=== PATIENT | female | born 1970 | race Caucasian/White ===

== ENCOUNTER 2016-11-11 08:51 | Day surgery (SDC) | payer OTHER ==
--- NOTE | 2016-10-29 08:46 | HP ---
DATE OF ADMISSION: CHIEF COMPLAINT: Left breast mass. HISTORY OF PRESENT ILLNESS: Patient is a 46-year-old female who has been followed for a small mass in the left breast. Previous ultrasound suggested this was a lymph node. The patient has increased pain in that location and thinks it may be slightly larger. Denies nipple discharge. Prior mammogram was normal. She has a family history of breast cancer in an aunt on both the maternal and paternal side. PAST MEDICAL HISTORY: Denies. PAST SURGICAL HISTORY: , appy, IVC filter, head. MEDICATIONS: None. ALLERGIES: None. PHYSICAL EXAM: HEENT is normocephalic. Sclerae anicteric. CHEST: No deformities. Right breast without mass or adenopathy. Left breast with a small 1.5 x 1 cm mass at the 9 o'clock parasternal location. No adenopathy. Mild tenderness. Abdomen is soft, nontender, nondistended. IMPRESSION: A 46-year-old female with left breast mass. PLAN: Will proceed with operative excision on 11/11. The risks of bleeding, infection, postoperative pain, scarring, numbness and recurrence were discussed. She understands and wishes to proceed.
[~2016-11-11 08:51] MED LIST: DEXAMETHASONE SOD PHOSPHATE 10 MG/ML 1 ML VIAL IV ONE; HEPARIN SODIUM,PORCINE 5,000 UNIT/ML 1 ML VIAL SQ ONE; HYDROmorphone 1 MG/ML 1 ML SYRINGE IVP PRN; LACTATED RINGERS 1,000 ML IV SCH; ONDANSETRON 4 MG/2 ML VIAL IVP ONE; ceFAZolin 2 GM in SODIUM CHLORIDE 0.9% 100 ML IVPB ONE
[2016-11-11 09:17] VITALS: RESP 16
[2016-11-11] MEDS ORDERED: LIDOCAINE 1% 20 ML VIAL (10MG/ML) FOR IV START INTRADERMA ONE (09:23)
[2016-11-11] MEDS ORDERED: MIDAZOLAM 2 MG/2 ML VIAL ONE (09:59)
[2016-11-11] MEDS ORDERED: fentaNYL (PF) 50 MCG/ML 2 ML AMP ONE (09:59)
[2016-11-11] MEDS ORDERED: PROPOFOL 10 MG/ML 20 ML VIAL IV ONE (09:59)
[2016-11-11] MEDS ORDERED: LIDOCAINE 1% INJ 10MG/ML (20 ML MDV) ONE (09:59)
[2016-11-11] MEDS ORDERED: BUPIVACAIN-EPI 0.25%-1:200,000 30 ML VIAL SQ ONE (09:59)
[2016-11-11] MEDS ORDERED: ePHEDrine 50 MG/ML 1 ML AMP ONE (09:59)
[2016-11-11 10:41] VITALS: TEMP 96.9
[2016-11-11] MEDS ORDERED: NALOXONE 0.4 MG/ML 1 ML VIAL IV PRN (10:58)
[2016-11-11] MEDS ORDERED: HYDROcodone/APAP 5-325MG 1 EACH TAB PO PRN (10:58)
--- NOTE | 2016-11-11 11:02 | P.PCN ---
Date of Procedure: 11/11/16 Procedure(s) Performed: PREOPERATIVE DIAGNOSIS: Left breast mass POSTOPERATIVE DIAGNOSIS: Same PROCEDURE: Left breast biopsy SURGEON: Attila EBL: Minimal ANESTHESIA: General COMPLICATIONS: None OPERATIVE PROCEDURE: Patient was placed on the operating room table in the supine position. The patient's breast was prepped and draped in usual sterile fashion. A small horizontal incision was made overlying the palpable mass at the 9 o'clock position. The mass was fully excised with the use of electrocautery. The subcutaneous tissues were inspected. No bleeding was seen. The subcutaneous tissues were closed using 3-0 Vicryl sutures. The skin was closed using a running 4-0 Monocryl stitch. Steri-Strips and sterile dressings were applied. DISPOSITION: Stable to recovery room
[2016-11-11] MEDS ORDERED: KETOROLAC 30 MG/ML 1 ML VIAL IVP ONE (11:08)
[2016-11-11 12:05] VITALS: BP 85/55
[2016-11-11 12:28] VITALS: PULSE 62
== END 2016-11-11 12:45 | disposition home or self-care (01) ==
LOC: OR 08:51
PROVIDERS: ATTEND Surgery
DX: D17.1 Benign lipomatous neoplasm of skin and subcutaneous tissue of trunk (principal); Z80.3 Family history of malignant neoplasm of breast; Z86.718 Personal history of other venous thrombosis and embolism
CPT/HCPCS: 81025; 88304; 19120; J2250; J1644; J1100; J0690; J2405; J2001; J3010; J1885; J2704

== ENCOUNTER 2019-08-16 13:08 | Emergency (ER) | payer OTHER ==
[2019-08-16 13:26] VITALS: TEMP 98.5
--- NOTE | 2019-08-16 14:11 | US ---
EXAMINATION TYPE: US venous doppler duplex LE RT DATE OF EXAM: 08/16/2019 2:04 PM COMPARISON: NONE CLINICAL HISTORY: pain, redness, hx of dvt. SIDE PERFORMED: Right TECHNIQUE: The lower extremity deep venous system is examined utilizing real time linear array sonog munira with graded compression, doppler sonography and color-flow sonography. VESSELS IMAGED: External Iliac Vein (EIV) Common Femoral Vein Deep Femoral Vein Greater Saphenous Vein * Femoral Vein Popliteal Vein Small Saphenous Vein * Proximal Calf Veins (* superficial vessels) Right Leg: Negative for DVT Positive for SVT. At the area of redness, right inner thigh, the GSV is thrombosed and noncompressibl e. IMPRESSION: 1. Findings are compatible with superficial venous thrombosis of the greater saphenous vein. 2. No diagnostic evidence of deep venous thrombosis.
--- NOTE | 2019-08-16 14:31 | ED ---
Extremity Problem HPI - General Chief complaint: Extremity Problem,Nontraumatic Stated complaint: Poss DVT Time Seen by Provider: 08/16/19 13:30 Source: patient, family Mode of arrival: ambulatory Limitations: no limitations - History of Present Illness Initial comments: Patient is a 49-year-old female presenting to emergency Department with complaints of redness and pain in her upper right leg 2 days. Patient states she has a history of DVTs and is concerned this may be another one. Patient denies any recent travel. Patient was on steroids and other [id number] medications for recent cold. Patient denies fever, chills, shortness breath, cough. Patient has no other complaints at this time. Upon arrival to ER, vital signs are stable. - Related Data Previous Rx's Medication Instructions Recorded Hydrocodone/Acetaminophen [[place] 1 - 2 each PO Q4HR PRN #30 tab 11/11/16 5-325] Allergies Allergy/AdvReac Type Severity Reaction Status Date / Time No Known Allergies Allergy Verified 08/16/19 13:23 Review of Systems ROS Statement: Those systems with pertinent positive or pertinent negative responses have been documented in the HPI. ROS Other: All systems not noted in ROS Statement are negative. Past Medical History Past Medical History: Cancer, Deep Vein Thrombosis (DVT) Additional Past Medical History / Comment(s): LT BREAST MASS. HX ABNORMAL CHIARI TO BACK OF HEAD. CERVICAL CANCER X 2 History of Any Multi-Drug Resistant Organisms: None Reported Past Surgical History: Appendectomy, Section, Uterine Ablation Additional Past Surgical History / Comment(s): PREM IN MIDDLE OF CHEST JUST UNDER BREAST AREA. ENLARGED OPENED FOR CHIARI MALFUNCTIONS. COLD KNIFE CONIZATION X 2 Past Anesthesia/Blood Transfusion Reactions: Postoperative Nausea & Vomiting (PONV) Past Psychological History: No Psychological Hx Reported Smoking Status: Current every day smoker - Past Family History Sister(s) Family Medical History: Cancer Father Family Medical History: Cancer General Exam - General Exam Comments Initial Comments: GENERAL: Well-appearing, well-nourished and in no acute distress. HEAD: Atraumatic, normocephalic. EYES: Pupils equal round and reactive to light, extraocular movements intact, sclera anicteric, conjunctiva are normal. ENT: Moist mucous membranes. NECK: Normal range of motion, supple without lymphadenopathy or JVD. LUNGS: Breath sounds clear to auscultation bilaterally and equal. No wheezes rales or rhonchi. HEART: Regular rate and rhythm without murmurs, rubs or gallops. ABDOMEN: Soft, nontender, normoactive bowel sounds. EXTREMITIES: There is erythema and mild swelling of the right inner thigh. On palpation, there is a superficial cordlike structure, consistent with a possible superficial thrombi. Patient is neurovascular intact. Patient is full range of motion of the right knee and hip. NEUROLOGICAL: Cranial nerves II through XII grossly intact. Normal speech, normal gait. PSYCH: Normal mood, normal affect. SKIN: Warm, Dry, normal turgor, no rashes or lesions noted. Limitations: no limitations Course Vital Signs 08/16/19 08/16/19 13:23 14:55 Temperature 98.5 F Pulse Rate 79 84 Respiratory 16 20 Rate Blood Pressure 103/68 136/79 O2 Sat by Pulse 97 98 Oximetry Medical Decision Making - Medical Decision Making Patient is a 49-year-old female presenting with right inner leg redness, swelling, pain 2 days. Patient does have history of DVT. Right lower extremity Doppler reveals a superficial venous thrombus in the greater saphenous vein. No diagnostic evidence of a DVT. Patient is stable for discharge at this time. Patient will use warm compresses and anti-inflammatories for pain control. Patient will follow up with her PCP next week. Return parameters were discussed with the patient and she verbalized understanding. Case discussed with Dr. Tran. Disposition Clinical Impression: Superficial thrombosis of right lower extremity Disposition: HOME SELF-CARE Condition: Stable Instructions (If sedation given, give patient instructions): Superficial Thrombophlebitis (ED) Additional Instructions: Please return to the Emergency Department if symptoms worsen or any other concerns. Continue with Motrin and heat to the area. Follow-up with PCP next week for recheck. Is patient prescribed a controlled substance at d/c from ED?: No Referrals: Vikram Diggs MD [Primary Care Provider] - 1-2 days
[2019-08-16 14:56] VITALS: BP 136/79; PULSE 84; RESP 20
== END 2019-08-16 14:56 | disposition home or self-care (01) ==
LOC: EC 13:08
DX: I82.811 Embolism and thrombosis of superficial veins of right lower extremity (principal); F17.200 Nicotine dependence, unspecified, uncomplicated; Z86.718 Personal history of other venous thrombosis and embolism; Z85.41 Personal history of malignant neoplasm of cervix uteri
CPT/HCPCS: 99283

== ENCOUNTER → 2020-04-17 | Outpatient (CLI) | payer OTHER ==
--- NOTE | 2020-04-17 11:40 | MM ---
Reason for exam: clinical finding. Last mammogram was performed 5 years and 2 months ago. History: Patient is postmenopausal and has history of other cancer at age 23. Family history of breast cancer in maternal aunt at age 50, breast cancer in paternal aunt at age 50, and breast cancer in paternal uncle at age 70. Benign excisional biopsy of the left breast, 2018. Physical Findings: Nurse Summary: 1 x 1.5cm nodule in the left breast at 9 o'clock (nurse ts). MG Diagnostic Mammo w CAD MARE Bilateral CC and MLO view(s) were taken. Prior study comparison: February 25, 2015, mammogram. The breast tissue is heterogeneously dense. This may lower the sensitivity of mammography. No significant new findings when compared with previous films. These results were verbally communicated with the patient and result sheet given to the patient on 04/17/20. ASSESSMENT: Incomplete: need additional imaging evaluation, BI-RAD 0 RECOMMENDATION: Ultrasound of the left breast.
--- NOTE | 2020-04-17 11:42 | USB ---
Reason for exam: additional evaluation requested from abnormal screening. History: Patient is postmenopausal and has history of other cancer at age 23. Family history of breast cancer in maternal aunt at age 50, breast cancer in paternal aunt at age 50, and breast cancer in paternal uncle at age 70. Benign excisional biopsy of the left breast, 2018. US Breast LT Left complete breast ultrasound includes all four quadrants, the retroareolar region and axilla. Finding demonstrates a 2.0 x 0.4 x 1.0cm oval, hyperechoic lesion at 8 o'clock, questionable lipoma. These results were verbally communicated with the patient and result sheet given to the patient on 04/17/20. ASSESSMENT: Probably benign, BI-RAD 3 RECOMMENDATION: Ultrasound of the left breast in 3 months. (3-6 months)
== END | disposition home or self-care (01) ==
LOC: RADMAMWWP 09:41
PROVIDERS: ATTEND Internal Medicine
DX: R92.8 Other abnormal and inconclusive findings on diagnostic imaging of breast (principal); N63.20 Unspecified lump in the left breast, unspecified quadrant
CPT/HCPCS: 77066

== ENCOUNTER → 2020-08-05 | Outpatient (CLI) | payer OTHER ==
--- NOTE | 2020-08-10 14:43 | MM ---
Reason for exam: follow-up at short interval from prior study. Last mammogram was performed 4 months ago. History: Patient is postmenopausal and has history of other cancer at age 23. Family history of breast cancer in maternal aunt at age 50, breast cancer in paternal aunt at age 50, and breast cancer in paternal uncle at age 70. Benign excisional biopsy of the left breast, 2018. Physical Findings: Nurse Summary: 1.5cm nodule in the left breast at 8 o'clock (nurse taylor). MG Diagnostic Mammo LT w CAD CC and MLO view(s) were taken of the left breast. Prior study comparison: April 17, 2020, bilateral MG diagnostic mammo w CAD MARE. February 25, 2015, mammogram. The breast tissue is heterogeneously dense. This may lower the sensitivity of mammography. These results were verbally communicated with the patient and result sheet given to the patient on 08/05/20. ASSESSMENT: Incomplete: need additional imaging evaluation, BI-RAD 0 RECOMMENDATION: Ultrasound of the left breast.
--- NOTE | 2020-08-10 14:45 | USB ---
Reason for exam: additional evaluation requested from abnormal screening. History: Patient is postmenopausal and has history of other cancer at age 23. Family history of breast cancer in maternal aunt at age 50, breast cancer in paternal aunt at age 50, and breast cancer in paternal uncle at age 70. Benign excisional biopsy of the left breast, 2018. US Breast Limited LT Left limited breast ultrasound including focal area of concern, retroareolar and axilla demonstrates a 1.4 x 0.5 x 1.1cm hyperechoic questionable lipoma at 8 o'clock. These results were verbally communicated with the patient and result sheet given to the patient on 08/05/20. ASSESSMENT: Probably benign, BI-RAD 3 RECOMMENDATION: Follow-up diagnostic mammogram of both breasts in 9 months. Ultrasound of the left breast in 9 months. Back on schedule for April 2021.
== END | disposition home or self-care (01) ==
LOC: RADMAMWWP 14:15
PROVIDERS: ATTEND Internal Medicine
DX: R92.8 Other abnormal and inconclusive findings on diagnostic imaging of breast (principal)
CPT/HCPCS: 77065

== ENCOUNTER → 2021-11-03 | Outpatient (CLI) | payer OTHER ==
[2021-11-03 14:35] LABS: Basophils # (A) 0.01 X 10*3/uL (0.00-0.10); Basophils % (A) 0.2 %; Eosinophils # (A) 0.19 X 10*3/uL (0.04-0.35); HCT 38.1 % (37.2-46.3); HGB 12.5 g/dL (12.0-15.0); Lymphocytes # (A) 2.26 X 10*3/uL (0.90-5.00); Lymphocytes % (A) 47.1 %; MCH 30.6 pg (27.0-32.0); MCHC 32.8 g/dL (32.0-37.0); MCV 93.4 fL (80.0-97.0); Mean Platelet Volume 9.3 fL (9.5-12.2); Monocytes # (A) 0.46 X 10*3/uL (0.20-1.00); Monocytes % (A) 9.6 %; Neutrophils # (A) 1.87 X 10*3/uL (1.80-7.70); Neutrophils % (A) 38.9 %; Platelet Count 254 X 10*3/uL (140-440); RBC 4.08 X 10*6/uL (4.10-5.20); RDW 12.1 % (11.5-14.5)
[2021-11-03 15:08] LABS: ALT 11 U/L (8-44); AST 18 U/L (13-35); African American GFR (CKD) 85.2 (60.0-200.0); Albumin 4.1 g/dL (3.8-4.9); Albumin/Globulin Ratio 1.71 (1.60-3.17); Alkaline Phosphatase 73 U/L (41-126); BUN/Creat Ratio 12.67 Ratio (12.00-20.00); Blood Urea Nitrogen 11.4 mg/dL (9.0-27.0); Calcium 9.5 mg/dL (8.7-10.3); Carbon Dioxide 24.9 mmol/L (20.0-27.5); Chloride 102 mmol/L (96-109); Globulin 2.4 g/dL (1.6-3.3); Glucose 85 mg/dL (70-110); Non-African American GFR(CKD) 73.5 (60.0-200.0); Potassium 4.4 mmol/L (3.5-5.5); Sodium 140 mmol/L (135-145); Total Protein 6.5 g/dL (6.2-8.2)
[2021-11-03 16:30] LABS: Erythrocyte Sedimentation Rate 8 mm/Hr (0-30)
[2021-11-04 03:21] LABS: Chol/HDL Ratio 3.28 Ratio; LDL Cholesterol,Calculated 123.2 mg/dL (0.0-131.0); VLDL Calculation 15.08 mg/dL (5.00-40.00)
== END | disposition home or self-care (01) ==
LOC: LABWHC1 08:15
PROVIDERS: ATTEND Family Medicine
DX: E78.5 Hyperlipidemia, unspecified (principal); R63.4 Abnormal weight loss; E55.9 Vitamin D deficiency, unspecified
CPT/HCPCS: 36415; 80053; 80061; 82306; 84439; 84443; 85025; 85652

== ENCOUNTER → 2021-11-15 | Outpatient (CLI) | payer OTHER ==
--- NOTE | 2021-11-15 09:40 | US ---
EXAMINATION TYPE: US abdomen complete DATE OF EXAM: 11/15/2021 COMPARISON: NONE CLINICAL HISTORY: 51-year-old female R10.13 EPIGASTRIC PAIN. Epigastric pain; inability to gain weigh t for many months per patient TECHNIQUE: Multiple sonographic images of the abdomen are obtained. FINDINGS: EXAM MEASUREMENTS: Liver Length: 14.2 cm Gallbladder: Surgically absent CBD: 0.35 cm Spleen: 7.8 x 3.1 cm Right Kidney: 9.6 x 3.7 x 5.0 cm Left Kidney: 9.2 x 4.4 x 4.1 cm Pancreas: Suboptimal visualization of the pancreatic tail due to shadowing from bowel gas. Visualize d portions show no gross abnormal body. Liver: Vague echogenic focus 1.4 x 1.2 x 1.3 cm superior right liver lobe, probably a hemangioma. T his can be reassessed at a 6 month follow-up. Gallbladder: Surgically absent CBD: wnl Spleen: Appears wnl; difficult visualization due to rib shadowing Right Kidney: No hydronephrosis or masses seen Left Kidney: No hydronephrosis or masses seen Upper IVC: wnl Abd Aorta: wnl IMPRESSION: 1. An echogenic 1.4 cm lesion superior right liver lobe probably a benign hemangioma. Six-month follo w-up ultrasound to reassess. 2. Status post cholecystectomy. No biliary ductal dilatation.
--- NOTE | 2021-11-16 07:56 | MM ---
Reason for exam: additional evaluation requested from prior study. Last mammogram was performed 1 year and 3 months ago. History: Patient is postmenopausal and has history of other cancer at age 23. Family history of breast cancer in maternal aunt at age 50, breast cancer in paternal aunt at age 50, and breast cancer in paternal uncle at age 70. Benign excisional biopsy of the left breast, 2018. Took hormonal contraceptives for 6 years beginning at age 14. Physical Findings: Nurse did not find any significant physical abnormalities on exam. MG 3D Diag Mammo W/Cad MARE Bilateral CC and MLO view(s) were taken. Prior study comparison: August 05, 2020, left breast MG diagnostic mammo LT w CAD. April 17, 2020, bilateral MG diagnostic mammo w CAD MARE. The breast tissue is heterogeneously dense. This may lower the sensitivity of mammography. Patient palpable and pain marker medial left breast. No significant new findings when compared with previous films. These results were verbally communicated with the patient and result sheet given to the patient on 11/15/21. ASSESSMENT: Incomplete: need additional imaging evaluation, BI-RAD 0 RECOMMENDATION: Ultrasound of the left breast.
--- NOTE | 2021-11-16 08:00 | USB ---
Reason for exam: additional evaluation requested from abnormal screening. History: Patient is postmenopausal and has history of other cancer at age 23. Family history of breast cancer in maternal aunt at age 50, breast cancer in paternal aunt at age 50, and breast cancer in paternal uncle at age 70. Benign excisional biopsy of the left breast, 2018. Took hormonal contraceptives for 6 years beginning at age 14. US Breast Limited LT Technologist: Claudia Pereyra Left limited breast ultrasound including focal area of concern, retroareolar and axilla demonstrates a 1.9 x 1.1 x 0.5cm oval lesion at 8 o'clock BB versus 2.0 x 1.0 x 0.4cm on 04/17/20, compatible with a benign lipoma. These results were verbally communicated with the patient and result sheet given to the patient on 11/15/21. ASSESSMENT: Benign, BI-RAD 2 RECOMMENDATION: Routine screening mammogram of both breasts in 1 year. Manage on a clinical basis with regard to likely benign lipoma. If symptomatic, surgical consultation can be considered.
== END | disposition home or self-care (01) ==
LOC: RADUSWWP 08:15
PROVIDERS: ATTEND Family Medicine
DX: K76.89 Other specified diseases of liver (principal); R92.8 Other abnormal and inconclusive findings on diagnostic imaging of breast; Z90.49 Acquired absence of other specified parts of digestive tract; Z78.0 Asymptomatic menopausal state; Z80.3 Family history of malignant neoplasm of breast
CPT/HCPCS: 77066; 76700; 76642; G0279; 77062

== ENCOUNTER 2022-05-15 19:22 | Emergency (ER) | payer OTHER ==
[2022-05-15 19:31] VITALS: BP 103/73; PULSE 75; RESP 18; TEMP 98.5
[2022-05-15] MEDS ORDERED: ACETAMINOPHEN TAB 325 MG TAB PO STA (19:43)
[2022-05-15] MEDS ORDERED: ONDANSETRON ODT 4 MG TAB PO STA (19:43)
--- NOTE | 2022-05-15 20:53 | CT ---
EXAMINATION TYPE: CT brain cole wo con DATE OF EXAM: 05/15/2022 COMPARISON: None HISTORY: fell hitting back of head on cement CT DLP: 1174.8 mGycm Automated exposure control for dose reduction was used. Ventricles have normal size. There is no mass effect or midline shift. No sign of intracranial hemorr chhaya. The calvarium is intact. No evidence of cerebral edema. The cervical vertebra have normal alignment. Posterior elements are intact. Facet joints are intact. Prevertebral soft tissues are normal. Skull base is intact. IMPRESSION: Negative CT scan of the brain. Negative CT scan of the cervical spine
[2022-05-15] MEDS ORDERED: KETOROLAC 15 MG/ML 1 ML VIAL IM STA (21:02)
--- NOTE | 2022-05-15 21:26 | ED ---
General Adult HPI - General Chief complaint: Syncope Stated complaint: Syncope last night, hit head Time Seen by Provider: 05/15/22 19:37 Source: patient Mode of arrival: wheelchair Limitations: no limitations - History of Present Illness Initial comments: Patient is a 51-year-old female presenting with chief complaint of headache injury. Patient states that last night she fell and hit the back of her head on the curb, patient states "I blacked out". She is not on blood thinners and does not know how long she was unconscious for. Patient does not remember many of the events before after this incident. Today she is complaining of soreness, nausea, lightheadedness, and blurry vision. She has not taken anything for pain at home. She denies any vomiting, chest pain, shortness of breath, fever, chills, palpitations, numbness, tingling, neck stiffness, hearing changes. - Related Data Previous Rx's Medication Instructions Recorded Hydrocodone/Acetaminophen [[place] 1 - 2 each PO Q4HR PRN #30 tab 11/11/16 5-325] Allergies Allergy/AdvReac Type Severity Reaction Status Date / Time No Known Allergies Allergy Verified 05/15/22 19:30 Review of Systems ROS Statement: Those systems with pertinent positive or pertinent negative responses have been documented in the HPI. ROS Other: All systems not noted in ROS Statement are negative. Past Medical History Past Medical History: Cancer, Deep Vein Thrombosis (DVT) Additional Past Medical History / Comment(s): LT BREAST MASS. HX ABNORMAL CHIARI TO BACK OF HEAD. CERVICAL CANCER X 2 History of Any Multi-Drug Resistant Organisms: None Reported Past Surgical History: Appendectomy, Section, Uterine Ablation Additional Past Surgical History / Comment(s): PREM IN MIDDLE OF CHEST JUST UNDER BREAST AREA. ENLARGED OPENED FOR CHIARI MALFUNCTIONS. COLD KNIFE CONIZATION X 2 Past Anesthesia/Blood Transfusion Reactions: Postoperative Nausea & Vomiting (PONV) Past Psychological History: No Psychological Hx Reported Smoking Status: Current every day smoker Past Alcohol Use History: Rare Past Drug Use History: Marijuana - Past Family History Sister(s) Family Medical History: Cancer Father Family Medical History: Cancer General Exam Limitations: no limitations General appearance: alert, in no apparent distress Head exam: Present: atraumatic, normocephalic, normal inspection Eye exam: Present: normal appearance, PERRL, EOMI. Absent: scleral icterus, periorbital swelling Pupils: Present: normal accommodation Neck exam: Present: normal inspection, tenderness (Paraspinal muscle tenderness, no vertebral body tenderness), full ROM Respiratory exam: Present: normal lung sounds bilaterally. Absent: respiratory distress, wheezes, rales, rhonchi, stridor Cardiovascular Exam: Present: regular rate, normal rhythm, normal heart sounds. Absent: systolic murmur, diastolic murmur, rubs, gallop, clicks Neurological exam: Present: alert, oriented X3, CN II-XII intact Expanded Patient oriented to: Present: person, place, time Speech: Present: fluid speech Cranial nerves: EOM's Intact: Normal, Tongue Deviation: Normal, Facial Sensation: Normal Sensory exam: Upper Extremity Light Touch: Normal, Lower Extremity Light Touch: Normal Motor strength exam: RUE: 5, LUE: 5, RLE: 5, LLE: 5 Eye Response: (4) open spontaneously Motor Response: (6) obeys commands Verbal Response: (5) oriented [place] Total: 15 Psychiatric exam: Present: normal affect, normal mood Skin exam: Present: warm, dry, intact, normal color. Absent: rash Course Vital Signs 05/15/22 19:24 Temperature 98.5 F Pulse Rate 75 Respiratory 18 Rate Blood Pressure 103/73 O2 Sat by Pulse 99 Oximetry Medical Decision Making - Medical Decision Making Patient is a 51-year-old female presenting with chief complaint of head injury. She admits to lightheadedness, nausea, blurry vision. On examination there are no focal neurological deficits, there is some muscle soreness on palpation. No hemotympanum, raccoon's eyes, woods signs. Normal extraocular movements, full sensation, range of motion, strength of all extremities. CT of brain and cervical spine shows no acute intracranial process or fracture of the cervical spine. Patient is given pain medication and instructed to follow-up with her PCP. Report back to ER if any new or worsening symptoms. Discussed return parameters answered all questions. Patient conveyed verbal understanding and agreed to the plan. I discussed this case with my attending Dr. Ritter. Disposition Clinical Impression: Head injury Disposition: HOME SELF-CARE Condition: Good Instructions (If sedation given, give patient instructions): Concussion (ED), Head Injury (ED) Additional Instructions: Follow-up with PCP in one to 2 days. Report back to ER with any new or worsening symptoms. Take Motrin and Tylenol as needed for pain control. Get plenty of rest. Is patient prescribed a controlled substance at d/c from ED?: No Referrals: Jame Elmore MD [Primary Care Provider] - 1-2 days Time of Disposition: 21:04
== END 2022-05-15 22:05 | disposition home or self-care (01) ==
LOC: EC 19:22
DX: S09.90XA Unspecified injury of head, initial encounter (principal); R55 Syncope and collapse; F17.200 Nicotine dependence, unspecified, uncomplicated; W22.8XXA Striking against or struck by other objects, initial encounter
CPT/HCPCS: 72125; 70450; 99284; 96372; J1885

== ENCOUNTER 2022-09-22 13:13 | Emergency (ER) | payer OTHER ==
[2022-09-22 13:26] VITALS: BP 135/84; PULSE 100; RESP 20; TEMP 98.1
--- NOTE | 2022-09-22 14:15 | CT ---
EXAMINATION TYPE: CT brain wo con DATE OF EXAM: 09/22/2022 COMPARISON: 05/15/2022 HISTORY: Dizzy, Syncope, History of brain surgery CT DLP: 1099.8 mGycm Automated exposure control for dose reduction was used. FINDINGS: Low-lying cerebellar tonsils compatible with Chiari malformation. Correlate for previous occipital de compression surgery. Small cyst in the posterior fossa may represent a prominent cisterna magna or a tiny arachnoid cyst. Findings stable. Ventricular system is midline without evidence of displacement. No acute hemorrhage or mass effect. Orbits are symmetric. Sinuses are clear. Minimal ethmoidal mucosal thickening. IMPRESSION: 1. Chiari malformation correlate for previous decompression surgery. 2. No acute hemorrhage or mass effect.
[2022-09-22 15:57] LABS: Basophils % (A) 0 %; Eosinophils # (A) 0.2 k/uL (0-0.7); Eosinophils % (A) 3 %; HCT 35.8 % (34.0-46.0); HGB 12.8 gm/dL (11.4-16.0); Lymphocytes # (A) 2.4 k/uL (1.0-4.8); Lymphocytes % (A) 38 %; MCH 31.9 pg (25.0-35.0); MCHC 35.7 g/dL (31.0-37.0); MCV 89.3 fL (80.0-100.0); Monocytes # (A) 0.3 k/uL (0-1.0); Monocytes % (A) 5 %; Neutrophils # (A) 3.2 k/uL (1.3-7.7); Neutrophils % (A) 52 %; Platelet Count 233 k/uL (150-450); RBC 4.01 m/uL (3.80-5.40); RDW 11.9 % (11.5-15.5); WBC 6.3 k/uL (3.8-10.6)
[2022-09-22 16:05] LABS: INR 0.9 (<1.2); Prothrombin Time 9.8 sec (9.0-12.0)
[2022-09-22 16:06] LABS: ALT 16 U/L (4-34); AST 21 U/L (14-36); African American GFR (CKD) >90 (>60 ml/min/1.73 sqM); Albumin 4.2 g/dL (3.5-5.0); Alkaline Phosphatase 75 U/L (38-126); Anion Gap 5 mmol/L; Blood Urea Nitrogen 9 mg/dL (7-17); Calcium 9.1 mg/dL (8.4-10.2); Carbon Dioxide 27 mmol/L (22-30); Chloride 106 mmol/L (98-107); Glucose 98 mg/dL (74-99); Non-African American GFR(CKD) >90 (>60 ml/min/1.73 sqM); Potassium 4.3 mmol/L (3.5-5.1); Sodium 138 mmol/L (137-145); Total Bilirubin 0.3 mg/dL (0.2-1.3); Total Protein 6.9 g/dL (6.3-8.2)
[2022-09-22 16:21] LABS: Appearance,Urine Clear (Clear); Bilirubin,Urine Negative (Negative); Blood,Urine Moderate (Negative); Color,Urine Light Yellow; Glucose,Urine (UA) Negative (Negative); Ketones,Urine Negative (Negative); Leukocyte Esterase,Urine Negative (Negative); Mucus,Urine Rare /hpf; Nitrite,Urine Negative (Negative); PH, Urine 7.5 (5.0-8.0); Protein,Urine Negative (Negative); RBC,Urine 2 /hpf (0-5); Specific Gravity,Urine 1.011 (1.001-1.035); Squamous Epithelial Cell,Urine 1 /hpf (0-4); Urobilinogen,Urine <2.0 mg/dL (<2.0); WBC,Urine <1 /hpf (0-5)
[2022-09-22 16:31] LABS: Amphetamine Screen,Urine Not Detected (NotDetected); Barbiturate Screen,Urine Not Detected (NotDetected); Benzodiazepines Screen,Urine Not Detected (NotDetected); Cocaine Screen,Urine Not Detected (NotDetected); Methadone Screen, Urine Not Detected (NotDetected); Opiate Screen,Urine Not Detected (NotDetected); Oxycodone Screen, Urine Not Detected (NotDetected); Phencyclidine Screen,Urine Not Detected (NotDetected); Tricyclic Antidepressant,Urine Not Detected (NotDetected); Urn Cannabinoid Scrn Detected (NotDetected)
--- NOTE | 2022-09-22 18:10 | ED ---
General Adult HPI - General Chief complaint: Dizziness Stated complaint: dizziness, syncope yesterday Time Seen by Provider: 09/22/22 17:30 Source: patient Mode of arrival: ambulatory Limitations: no limitations - History of Present Illness Initial comments: Patient is a 52-year-old female presenting with chief complaint of syncope. Patient states that last night she was feeling lightheaded. She sat down on the couch and states that she woke up on the couch and slumped over. Patient states she lives alone, no one witnessed this incident or is able to tell her how long she was unconscious for. She is complaining of a mild headache. At this time she denies any neck pain or stiffness, vision or hearing changes, nausea, vomiting, chest pain, difficulty breathing, fever, chills, abdominal pain, dizziness, numbness, tingling, weakness. - Related Data Previous Rx's Medication Instructions Recorded Hydrocodone/Acetaminophen [[place] 1 - 2 each PO Q4HR PRN #30 tab 11/11/16 5-325] Allergies Allergy/AdvReac Type Severity Reaction Status Date / Time No Known Allergies Allergy Verified 05/15/22 19:30 Review of Systems ROS Statement: Those systems with pertinent positive or pertinent negative responses have been documented in the HPI. ROS Other: All systems not noted in ROS Statement are negative. Past Medical History Past Medical History: Cancer, Deep Vein Thrombosis (DVT) Additional Past Medical History / Comment(s): LT BREAST MASS. HX ABNORMAL CHIARI TO BACK OF HEAD. CERVICAL CANCER X 2 History of Any Multi-Drug Resistant Organisms: None Reported Past Surgical History: Appendectomy, Section, Uterine Ablation Additional Past Surgical History / Comment(s): PREM IN MIDDLE OF CHEST JUST UNDER BREAST AREA. ENLARGED OPENED FOR CHIARI MALFUNCTIONS. COLD KNIFE CONIZATION X 2 Past Anesthesia/Blood Transfusion Reactions: Postoperative Nausea & Vomiting (PONV) Past Psychological History: No Psychological Hx Reported Smoking Status: Current every day smoker Past Alcohol Use History: Rare Past Drug Use History: Marijuana - Past Family History Sister(s) Family Medical History: Cancer Father Family Medical History: Cancer General Exam Limitations: no limitations General appearance: alert, in no apparent distress Head exam: Present: atraumatic, normocephalic, normal inspection Eye exam: Present: normal appearance, PERRL, EOMI. Absent: scleral icterus, conjunctival injection, periorbital swelling Neck exam: Present: normal inspection, full ROM. Absent: tenderness Respiratory exam: Present: normal lung sounds bilaterally. Absent: respiratory distress, wheezes, rales, rhonchi, stridor Cardiovascular Exam: Present: regular rate, normal rhythm, normal heart sounds. Absent: systolic murmur, diastolic murmur, rubs, gallop, clicks Neurological exam: Present: alert, oriented X3, CN II-XII intact Expanded Eye Response: (4) open spontaneously Motor Response: (6) obeys commands Verbal Response: (5) oriented [place] Total: 15 Psychiatric exam: Present: normal affect, normal mood Skin exam: Present: warm, dry, intact, normal color. Absent: rash Course Vital Signs 09/22/22 13:22 Temperature 98.1 F Pulse Rate 100 Respiratory 20 Rate Blood Pressure 135/84 O2 Sat by Pulse 98 Oximetry EKG Findings - EKG Comments: EKG Findings:: EKG interpreted by me. Sinus bradycardia. Ventricular rate 59. DC interval 177. QRS 74. QT 386. QTc 385. No ST deviation or T wave inversion. Medical Decision Making - Medical Decision Making Patient is a 52-year-old female presenting with chief complaint of syncope. Patient had what she suspects to be a syncopal episode last night. Patient states she was feeling lightheaded and sat on the couch, she limb later woke up slumped over. She complains of a mild headache, otherwise no other symptoms. Physical examination shows no focal neurological deficits, heart and lungs are clear to auscultation. EKG shows sinus bradycardia with rate of 59, no ischemic changes. CBC, coags, CMP, troponin are unremarkable. Urine toxicology is positive for marijuana. CT shows she are email formation with evidence of pre vious decompression surgery, patient endorses this history. There is no acute hemorrhage or mass effect. This is confirmed by my interpretation. Patient is feeling well at this time. Instructed to follow up with cardiology for potential Holter monitor.Follow-up with PCP. Report back to ER with any new or worsening symptoms. Discussed return parameters and answered all questions. Patient conveyed verbal understanding and agreed to the plan. I discussed this case in detail with my attending Dr. Flanagan - Lab Data Result diagrams: 09/22/22 15:37 09/22/22 15:37 Lab Results 09/22/22 09/22/22 09/22/22 Range/Units 15:37 15:37 15:37 WBC 6.3 (3.8-10.6) k/uL RBC 4.01 (3.80-5.40) m/uL Hgb 12.8 (11.4-16.0) gm/dL Hct 35.8 (34.0-46.0) % MCV 89.3 (80.0-100.0) fL MCH 31.9 (25.0-35.0) pg MCHC 35.7 (31.0-37.0) g/dL RDW 11.9 (11.5-15.5) % Plt Count 233 (150-450) k/uL MPV 8.0 Neutrophils % 52 % Lymphocytes % 38 % Monocytes % 5 % Eosinophils % 3 % Basophils % 0 % Neutrophils # 3.2 (1.3-7.7) k/uL Lymphocytes # 2.4 (1.0-4.8) k/uL Monocytes # 0.3 (0-1.0) k/uL Eosinophils # 0.2 (0-0.7) k/uL Basophils # 0.0 (0-0.2) k/uL PT 9.8 (9.0-12.0) sec INR 0.9 (<1.2) Sodium (137-145) mmol/L Potassium (3.5-5.1) mmol/L Chloride (98-107) mmol/L Carbon Dioxide (22-30) mmol/L Anion Gap mmol/L BUN (7-17) mg/dL Creatinine (0.52-1.04) mg/dL Est GFR (CKD-EPI)AfAm (>60 ml/min/1.73 sqM) Est GFR (CKD-EPI)NonAf (>60 ml/min/1.73 sqM) Glucose (74-99) mg/dL Calcium (8.4-10.2) mg/dL Total Bilirubin (0.2-1.3) mg/dL AST (14-36) U/L ALT (4-34) U/L Alkaline Phosphatase (38-126) U/L Troponin I (0.000-0.034) ng/mL Total Protein (6.3-8.2) g/dL Albumin (3.5-5.0) g/dL Urine Color Urine Appearance (Clear) Urine pH (5.0-8.0) Ur Specific [place] (1.001-1.035) Urine Protein (Negative) Urine Glucose (UA) (Negative) Urine Ketones (Negative) Urine Blood (Negative) Urine Nitrite (Negative) Urine Bilirubin (Negative) Urine Urobilinogen (<2.0) mg/dL Ur Leukocyte Esterase (Negative) Urine RBC (0-5) /hpf Urine WBC (0-5) /hpf Ur Squamous Epith Cells (0-4) /hpf Urine Mucus (None) /hpf Urine Opiates Screen Not Detected (NotDetected) Ur Oxycodone Screen Not Detected (NotDetected) Urine Methadone Screen Not Detected (NotDetected) Ur Propoxyphene Screen Not Detected (NotDetected) Ur Barbiturates Screen Not Detected (NotDetected) U Tricyclic Antidepress Not Detected (NotDetected) Ur Phencyclidine Scrn Not Detected (NotDetected) Ur Amphetamines Screen Not Detected (NotDetected) U Methamphetamines Scrn Not Detected (NotDetected) U Benzodiazepines Scrn Not Detected (NotDetected) Urine Cocaine Screen Not Detected (NotDetected) U Marijuana (THC) Screen Detected H (NotDetected) 09/22/22 09/22/22 09/22/22 Range/Units 15:37 15:37 15:37 WBC (3.8-10.6) k/uL RBC (3.80-5.40) m/uL Hgb (11.4-16.0) gm/dL Hct (34.0-46.0) % MCV (80.0-100.0) fL MCH (25.0-35.0) pg MCHC (31.0-37.0) g/dL RDW (11.5-15.5) % Plt Count (150-450) k/uL MPV Neutrophils % % Lymphocytes % % Monocytes % % Eosinophils % % Basophils % % Neutrophils # (1.3-7.7) k/uL Lymphocytes # (1.0-4.8) k/uL Monocytes # (0-1.0) k/uL Eosinophils # (0-0.7) k/uL Basophils # (0-0.2) k/uL PT (9.0-12.0) sec INR (<1.2) Sodium 138 (137-145) mmol/L Potassium 4.3 (3.5-5.1) mmol/L Chloride 106 (98-107) mmol/L Carbon Dioxide 27 (22-30) mmol/L Anion Gap 5 mmol/L BUN 9 (7-17) mg/dL Creatinine 0.71 (0.52-1.04) mg/dL Est GFR (CKD-EPI)AfAm >90 (>60 ml/min/1.73 sqM) Est GFR (CKD-EPI)NonAf >90 (>60 ml/min/1.73 sqM) Glucose 98 (74-99) mg/dL Calcium 9.1 (8.4-10.2) mg/dL Total Bilirubin 0.3 (0.2-1.3) mg/dL AST 21 (14-36) U/L ALT 16 (4-34) U/L Alkaline Phosphatase 75 (38-126) U/L Troponin I <0.012 (0.000-0.034) ng/mL Total Protein 6.9 (6.3-8.2) g/dL Albumin 4.2 (3.5-5.0) g/dL Urine Color Light Yellow Urine Appearance Clear (Clear) Urine pH 7.5 (5.0-8.0) Ur Specific [place] 1.011 (1.001-1.035) Urine Protein Negative (Negative) Urine Glucose (UA) Negative (Negative) Urine Ketones Negative (Negative) Urine Blood Moderate H (Negative) Urine Nitrite Negative (Negative) Urine Bilirubin Negative (Negative) Urine Urobilinogen <2.0 (<2.0) mg/dL Ur Leukocyte Esterase Negative (Negative) Urine RBC 2 (0-5) /hpf Urine WBC <1 (0-5) /hpf Ur Squamous Epith Cells 1 (0-4) /hpf Urine Mucus Rare H (None) /hpf Urine Opiates Screen (NotDetected) Ur Oxycodone Screen (NotDetected) Urine Methadone Screen (NotDetected) Ur Propoxyphene Screen (NotDetected) Ur Barbiturates Screen (NotDetected) U Tricyclic Antidepress (NotDetected) Ur Phencyclidine Scrn (NotDetected) Ur Amphetamines Screen (NotDetected) U Methamphetamines Scrn (NotDetected) U Benzodiazepines Scrn (NotDetected) Urine Cocaine Screen (NotDetected) U Marijuana (THC) Screen (NotDetected) Disposition Clinical Impression: Syncope Disposition: HOME SELF-CARE Condition: Good Instructions (If sedation given, give patient instructions): Syncope (ED), Dizziness (ED) Additional Instructions: Follow-up with PCP and cardiology for possible Holter monitor. Report back to ER with any new or worsening symptoms. Is patient prescribed a controlled substance at d/c from ED?: No Referrals: Jame Elmore MD [Primary Care Provider] - 1-2 days Ran Sharp MD [STAFF PHYSICIAN] - 1-2 days Time of Disposition: 18:10
== END 2022-09-22 19:00 | disposition home or self-care (01) ==
LOC: EC 13:13
DX: R55 Syncope and collapse (principal); F17.200 Nicotine dependence, unspecified, uncomplicated; F12.90 Cannabis use, unspecified, uncomplicated
CPT/HCPCS: 36415; 70450; 80053; 80306; 81001; 84484; 85025; 85610; 93005; 99284

== ENCOUNTER 2023-07-27 08:52 | Inpatient (IN) | payer OTHER ==
[2023-07-27] MEDS ORDERED: ASPIRIN 81 MG PO STA (09:33)
[2023-07-27] MEDS ORDERED: NITROGLYCERIN OINT 1 INCH/GM PACKET TOPICAL STA (09:33)
--- NOTE | 2023-07-27 09:42 | ED ---
General Adult HPI - General Chief complaint: Chest Pain Stated complaint: chest pain Time Seen by Provider: 07/27/23 09:15 Source: patient, RN notes reviewed, old records reviewed Mode of arrival: ambulatory Limitations: no limitations - History of Present Illness Initial comments: This is a 53-year-old female presents emergency Department complaining of chest pain that radiates to her back. Patient states started this morning at 6:30 when she woke up. Patient states she is a little bit short of breath as well. Patient denies any diaphoretic episodes. Patient denies any nausea. Patient states she's had similar pain in the past but this is much longer lasting. Patient denies any diabetes hypertension or high cholesterol. Patient states she is a smoker. Patient denies family history of any heart disease. Patient denies any recent fever chills or cough per patient denies any abdominal pain patient denies nausea vomiting or diarrhea. - Related Data Home Medications Medication Instructions Recorded Confirmed Albuterol Sulfate [Ventolin HFA] 2 puff INHALATION RT-QID PRN 07/27/23 07/27/23 Terbinafine [LamISIL] 250 mg PO DAILY 07/27/23 07/27/23 Allergies Allergy/AdvReac Type Severity Reaction Status Date / Time No Known Allergies Allergy Verified 07/27/23 11:36 Review of Systems ROS Statement: Those systems with pertinent positive or pertinent negative responses have been documented in the HPI. ROS Other: All systems not noted in ROS Statement are negative. Past Medical History Past Medical History: Cancer, Chest Pain / Angina, Deep Vein Thrombosis (DVT), Osteoarthritis (OA), Renal Disease Additional Past Medical History / Comment(s): LT BREAST MASS, pt states hx of racing heart and chest pain. see Dr De Santiago H&P. HX ABNORMAL CHIARI TO BACK OF HEAD. CERVICAL CANCER X 2, ulcer hx of h pylori. Blacking out lately has fallen. wore heart monitor and seeing neurologist. BP runs a little low. Stage 3 kidney disease History of Any Multi-Drug Resistant Organisms: None Reported Past Surgical History: Appendectomy, Section, Cholecystectomy, Uterine Ablation Additional Past Surgical History / Comment(s): PREM filter IN MIDDLE OF CHEST JUST UNDER BREAST AREA. ENLARGED OPENING FOR CHIARI MALFUNCTIONS. COLD KNIFE CONIZATION X 2 Past Anesthesia/Blood Transfusion Reactions: Postoperative Nausea & Vomiting (PONV) Additional Past Anesthesia/Blood Transfusion Reaction / Comment(s): No blood transfusions Past Psychological History: No Psychological Hx Reported Smoking Status: Current every day smoker Past Alcohol Use History: Rare Past Drug Use History: Marijuana - Past Family History Sister(s) Family Medical History: Cancer Father Family Medical History: Cancer General Exam - General Exam Comments Initial Comments: GENERAL: Patient is well-developed and well-nourished. Patient is nontoxic and well- hydrated and is in mild distress. ENT: Neck is soft and supple. No significant lymphadenopathy is noted. Oropharynx is clear. Moist mucous membranes. Neck has full range of motion without eliciting any pain. EYES: The sclera were anicteric and conjunctiva were pink and moist. Extraocular movements were intact and pupils were equal round and reactive to light. Eyelids were unremarkable. PULMONARY: Unlabored respirations. Good breath sounds bilaterally. No audible rales rhonchi or wheezing was noted. CARDIOVASCULAR: There is a regular rate and rhythm without any murmurs gallops or rubs. ABDOMEN: Soft and nontender with normal bowel sounds. SKIN: Skin is clear with no lesions or rashes and otherwise unremarkable. NEUROLOGIC: Patient is alert and oriented x3. Cranial nerves II through XII are grossly intact. Motor and sensory are also intact. Normal speech, volume and content. Symmetrical smile. MUSCULOSKELETAL: Normal extremities with adequate strength and full range of motion. LYMPHATICS: No significant lymphadenopathy is noted PSYCHIATRIC: Normal psychiatric evaluation. Limitations: no limitations Course Vital Signs 07/27/23 07/27/23 07/27/23 09:00 10:27 11:00 Temperature 97.6 F 97.1 F L Pulse Rate 72 49 L 46 L Respiratory 18 18 9 L Rate Blood Pressure 108/69 106/74 106/74 O2 Sat by Pulse 99 99 99 Oximetry 07/27/23 07/27/23 12:00 13:26 Temperature 97.1 F L Pulse Rate 56 L 52 L Respiratory 14 18 Rate Blood Pressure 102/68 108/72 O2 Sat by Pulse 96 97 Oximetry Medical Decision Making - Medical Decision Making EKG is interpreted by myself. EKG shows sinus rhythm at 62 bpm WV interval 298 QRSs 80 QT interval is a 76 QTC is 382. Patient's EKG shows no ST segment elevation or depression. Was pt. sent in by a medical professional or institution (Dr., PA, HVAC TECHNICIAN, urgent care, hospital, or group home...) When possible be specific @ -No Did you speak to anyone other than the patient for history (EMS, parent, family, police, friend...)? What history was obtained from this source @ -No Did you review nursing and triage notes (agree or disagree)? Why? @ -I reviewed and agree with nursing and triage notes Were old charts reviewed (outside hosp., previous admission, EMS record, old EKG, old radiological studies, urgent care reports/EKG's, group home records)? Report findings @ -I reviewed prior charts her Jesus this patient Differential Diagnosis (chest pain, altered mental status, abdominal pain women, abdominal pain men, vaginal bleeding, weakness, fever, dyspnea, syncope, headache, dizziness, GI bleed, back pain, seizure, CVA, palpatations, mental health, musculoskeletal)? @ -Differential chest pain EKG interpreted by me (3pts min.). @ -As above X-rays interpreted by me (1pt min.). @ -Acute abnormality CT interpreted by me (1pt min.). @ -None done U/S interpreted by me (1pt. min.). @ -None done What testing was considered but not performed or refused? (CT, X-rays, U/S, labs)? Why? @ -None What meds were considered but not given or refused? Why? @ -None Did you discuss the management of the patient with other professionals (professionals i.e. , PA, HVAC TECHNICIAN, lab, RT, psych nurse, social insurance administrator, manager asset, teacher, registration officer, behavioral health case manager)? Give summary @ -Eyes spoke with sound physician's and they agreed to admit the patient admitted the patient wrote admitting Was smoking cessation discussed for >3mins.? @ -No Was critical care preformed (if so, how long)? @ -No Were there social determinants of health that impacted care today? How? (Homelessness, low income, unemployed, alcoholism, drug addiction, transportation, low edu. Level, literacy, decrease access to med. care, prison, rehab)? @ -No Was there de-escalation of care discussed even if they declined (Discuss DNR or withdrawal of care, Hospice)? DNR status @ -No What co-morbidities impacted this encounter? (DM, HTN, Smoking, COPD, CAD, Cancer, CVA, ARF, Chemo, Hep., AIDS, mental health diagnosis, sleep apnea, morbid obesity)? @ -None Was patient admitted / discharged? Hospital course, mention meds given and route, prescriptions, significant lab abnormalities, going to OR and other pertinent info. @ -She was given aspirin Nitropaste emergency department. It did seem to help her pain. I spoke with sound physician's he agreed to admit the patient I wrote admitting orders I consulted cardiology Undiagnosed new problem with uncertain prognosis? @ -No Drug Therapy requiring intensive monitoring for toxicity (Heparin, Nitro, Insulin, Cardizem)? @ -No Were any procedures done? @ -No Diagnosis/symptom? @ -Chest pain Acute, or Chronic, or Acute on Chronic? @ -Acute Uncomplicated (without systemic symptoms) or Complicated (systemic symptoms)? @ -Complicated Side effects of treatment? @ -No Exacerbation, Progression, or Severe Exacerbation? @ -No Poses a threat to life or bodily function? How? (Chest pain, [place], OR, pneumonia, PE, COPD, DKA, ARF, appy, cholecystitis, CVA, Diverticulitis, Homicidal, Suicidal, threat to staff... and all critical care pts) @ -Yes this could do an OR and end organ dysfunction - Lab Data Result diagrams: 07/27/23 09:52 07/27/23 09:52 Lab Results 07/27/23 07/27/23 07/27/23 Range/Units 09:52 09:52 09:52 WBC 4.0 (3.8-10.6) k/uL RBC 4.17 (3.80-5.40) m/uL Hgb 13.3 (11.4-16.0) gm/dL Hct 38.6 (34.0-46.0) % MCV 92.6 (80.0-100.0) fL MCH 31.8 (25.0-35.0) pg MCHC 34.3 (31.0-37.0) g/dL RDW 11.9 (11.5-15.5) % Plt Count 228 (150-450) k/uL MPV 7.2 Neutrophils % 45 % Lymphocytes % 42 % Monocytes % 7 % Eosinophils % 4 % Basophils % 0 % Neutrophils # 1.8 (1.3-7.7) k/uL Lymphocytes # 1.7 (1.0-4.8) k/uL Monocytes # 0.3 (0-1.0) k/uL Eosinophils # 0.2 (0-0.7) k/uL Basophils # 0.0 (0-0.2) k/uL PT 9.8 (9.0-12.0) sec INR 0.9 (<1.2) APTT 25.3 (22.0-30.0) sec Sodium 139 (137-145) mmol/L Potassium 4.3 (3.5-5.1) mmol/L Chloride 104 (98-107) mmol/L Carbon Dioxide 28 (22-30) mmol/L Anion Gap 7 mmol/L BUN 11 (7-17) mg/dL Creatinine 0.72 (0.52-1.04) mg/dL Est GFR (CKD-EPI)AfAm >90 (>60 ml/min/1.73 sqM) Est GFR (CKD-EPI)NonAf >90 (>60 ml/min/1.73 sqM) Glucose 86 (74-99) mg/dL Calcium 9.6 (8.4-10.2) mg/dL Magnesium 2.0 (1.6-2.3) mg/dL Total Bilirubin 0.4 (0.2-1.3) mg/dL AST 23 (14-36) U/L ALT 15 (4-34) U/L Alkaline Phosphatase 63 (38-126) U/L Troponin I (0.000-0.034) ng/mL Total Protein 7.2 (6.3-8.2) g/dL Albumin 4.3 (3.5-5.0) g/dL 07/27/23 Range/Units 09:52 WBC (3.8-10.6) k/uL RBC (3.80-5.40) m/uL Hgb (11.4-16.0) gm/dL Hct (34.0-46.0) % MCV (80.0-100.0) fL MCH (25.0-35.0) pg MCHC (31.0-37.0) g/dL RDW (11.5-15.5) % Plt Count (150-450) k/uL MPV Neutrophils % % Lymphocytes % % Monocytes % % Eosinophils % % Basophils % % Neutrophils # (1.3-7.7) k/uL Lymphocytes # (1.0-4.8) k/uL Monocytes # (0-1.0) k/uL Eosinophils # (0-0.7) k/uL Basophils # (0-0.2) k/uL PT (9.0-12.0) sec INR (<1.2) APTT (22.0-30.0) sec Sodium (137-145) mmol/L Potassium (3.5-5.1) mmol/L Chloride (98-107) mmol/L Carbon Dioxide (22-30) mmol/L Anion Gap mmol/L BUN (7-17) mg/dL Creatinine (0.52-1.04) mg/dL Est GFR (CKD-EPI)AfAm (>60 ml/min/1.73 sqM) Est GFR (CKD-EPI)NonAf (>60 ml/min/1.73 sqM) Glucose (74-99) mg/dL Calcium (8.4-10.2) mg/dL Magnesium (1.6-2.3) mg/dL Total Bilirubin (0.2-1.3) mg/dL AST (14-36) U/L ALT (4-34) U/L Alkaline Phosphatase (38-126) U/L Troponin I <0.012 (0.000-0.034) ng/mL Total Protein (6.3-8.2) g/dL Albumin (3.5-5.0) g/dL Disposition Clinical Impression: Chest pain Disposition: ADMITTED IP TO THIS [facility] Referrals: Esequiel Pedroza MD [Primary Care Provider] - 1-2 days Time of Disposition: 13:36
--- NOTE | 2023-07-27 09:54 | XR ---
EXAMINATION TYPE: XR chest 2V DATE OF EXAM: 07/27/2023 COMPARISON: NONE HISTORY: Shortness of breath TECHNIQUE: Frontal and lateral views of the chest are obtained. FINDINGS: Scattered senescent parenchymal changes noted. Hyperinflation compatible with COPD. No evidence for infiltrate. No evidence for atelectasis. Heart size is stable. Mediastinal structures are stable and grossly unremarkable. No evidence for hilar prominence. Degenerative changes dorsal spine. IMPRESSION: 1. No evidence for acute pulmonary disease.
[2023-07-27 10:05] LABS: Basophils % (A) 0 %; Eosinophils # (A) 0.2 k/uL (0-0.7); Eosinophils % (A) 4 %; HCT 38.6 % (34.0-46.0); HGB 13.3 gm/dL (11.4-16.0); Lymphocytes # (A) 1.7 k/uL (1.0-4.8); Lymphocytes % (A) 42 %; MCH 31.8 pg (25.0-35.0); MCHC 34.3 g/dL (31.0-37.0); MCV 92.6 fL (80.0-100.0); Mean Platelet Volume 7.2; Monocytes # (A) 0.3 k/uL (0-1.0); Monocytes % (A) 7 %; Neutrophils # (A) 1.8 k/uL (1.3-7.7); Neutrophils % (A) 45 %; Platelet Count 228 k/uL (150-450); RBC 4.17 m/uL (3.80-5.40); RDW 11.9 % (11.5-15.5)
[2023-07-27 10:15] LABS: INR 0.9 (<1.2); Partial Thromboplastin Time 25.3 sec (22.0-30.0); Prothrombin Time 9.8 sec (9.0-12.0)
[2023-07-27 10:21] LABS: ALT 15 U/L (4-34); AST 23 U/L (14-36); African American GFR (CKD) >90 (>60 ml/min/1.73 sqM); Albumin 4.3 g/dL (3.5-5.0); Alkaline Phosphatase 63 U/L (38-126); Anion Gap 7 mmol/L; Blood Urea Nitrogen 11 mg/dL (7-17); Calcium 9.6 mg/dL (8.4-10.2); Carbon Dioxide 28 mmol/L (22-30); Chloride 104 mmol/L (98-107); Glucose 86 mg/dL (74-99); Non-African American GFR(CKD) >90 (>60 ml/min/1.73 sqM); Potassium 4.3 mmol/L (3.5-5.1); Sodium 139 mmol/L (137-145); Total Bilirubin 0.4 mg/dL (0.2-1.3); Total Protein 7.2 g/dL (6.3-8.2)
[2023-07-27] MEDS ORDERED: NITROGLYCERIN SL TABS 0.4 MG TAB SUBLINGUAL PRN (13:37)
[2023-07-27] MEDS ORDERED: NALOXONE 0.4 MG/ML 1 ML VIAL IVP PRN (13:39)
--- NOTE | 2023-07-27 13:39 | P.HPIM ---
History of Present Illness H&P Date: 07/27/23 History of Presenting Illness: Patient is a very pleasant 53-year-old female with a past medical history of DVTs status post [place] filter placement, and asthma/COPD with continued nicotine dependence. She presented to the emergency department with a chief complaint of chest pain. Patient reports pain in the midsternal chest awakening her from sleep. Patient reports his pain pills as a pressure and is sharp and radiates into her back. She reports pain is intermittent and denies anything making it better or worse. She denies having any associated factors including headache, lightheadedness, dizziness, palpitations, shortness of breath, cough or congestion, or experiencing any numbness/tingling/weakness/swelling in her extremities. Vital signs reviewed. Blood pressure 108/69, heart rate 72, respiratory rate 18, temp 97.6F, and SpO2 of 99% on room air. EKG completed showing normal sinus rhythm at 62 bpm with no noted to a breast abnormality showing no signs of acute ischemia upon personal review and interpretation. Chest x-ray completed, lungs appear clear hyperinflation present consistent with COPD been negative for acute cardiopulmonary process. Labs completed and reviewed. CBC, coags, and CMP were unremarkable. Troponin was negative at less than 0.012. Patient admitted under services of consultation cardiology. Review of systems: Pertinent positives and negatives as discussed in HPI, a complete review of systems was performed and all other systems are negative. Physical exam: Vital signs reviewed and stable. General: Nontoxic, no distress and appears stated age. Derm: Skin warm and dry, normal coloration for ethnicity. Head: Atraumatic, normocephalic and symmetric. Eyes: EOMs intact, no lid lag, and anicteric sclera Mouth: no lip lesions, mucus membranes moist Cardiovascular: regular rate and rhythm with normal S1S2, no murmur, positive posterior tibial pulses bilaterally, and cap refill < 2 seconds. Lungs: Respirations even, regular, and unlabored on room air. Lungs CTA bilaterally, no rhonchi, no rales, no wheezing, and no accessory muscle usage. Abdominal: soft, nontender to palpation, no guarding, no appreciable organomegaly Ext: ROM intact. No gross muscle atrophy, no edema, no contractures Neuro: Speech clear, face symmetrical and CN II-XII grossly intact with no noted focal neuro deficits Psych: Alert and oriented to person, place, time, and situation. Appropriate and pleasant affect. Assessment and Plan of Care:. Chest pain, rule out acute coronary event History of DVTs status post [place] filter placement Asthma/COPD with continued nicotine dependence -Cardiology consulted, appreciate further recommendations -Telemetry monitoring -Trend troponins -Cardiac diet, NPO at midnight -Continue daily medication regimen with Aspirin 81 mg daily -Lipid profile with a.m. labs. -Echocardiogram to be completed to evaluate structure and function of heart Data and imaging reviewed: - Vital signs reviewed. Blood pressure 108/69, heart rate 72, respiratory rate 18, temp 97.6F, and SpO2 of 99% on room air. -EKG completed showing normal sinus rhythm at 62 bpm with no noted to a breast abnormality showing no signs of acute ischemia upon personal review and interpretation. -Chest x-ray completed, lungs appear clear hyperinflation present consistent with COPD been negative for acute cardiopulmonary process. -Labs completed and reviewed. CBC, coags, and CMP were unremarkable. Troponin was negative at less than 0.012. Patient admitted under services of consultation cardiology. CODE STATUS: Full code DVT prophylaxis: Lovenox Discussed with: Patient, ED physician, and RN Anticipated discharge date: Likely 24-[address]: Home Patient was seen independently by Nurse Practitioner. This document was prepared using [employer] dictation software. Please allow for errors in foundry engineer while rare they do occur. Past Medical History Past Medical History: Cancer, Chest Pain / Angina, Deep Vein Thrombosis (DVT), Osteoarthritis (OA), Renal Disease Additional Past Medical History / Comment(s): LT BREAST MASS, pt states hx of racing heart and chest pain. see Dr De Santiago H&P. HX ABNORMAL CHIARI TO BACK OF HEAD. CERVICAL CANCER X 2, ulcer hx of h pylori. Blacking out lately has fallen. wore heart monitor and seeing neurologist. BP runs a little low. Stage 3 kidney disease History of Any Multi-Drug Resistant Organisms: None Reported Past Surgical History: Appendectomy, Section, Cholecystectomy, Uterine Ablation Additional Past Surgical History / Comment(s): PREM filter IN MIDDLE OF CHEST JUST UNDER BREAST AREA. ENLARGED OPENING FOR CHIARI MALFUNCTIONS. COLD KNIFE CONIZATION X 2 Past Anesthesia/Blood Transfusion Reactions: Postoperative Nausea & Vomiting (PONV) Additional Past Anesthesia/Blood Transfusion Reaction / Comment(s): No blood transfusions Past Psychological History: No Psychological Hx Reported Smoking Status: Current every day smoker Past Alcohol Use History: Rare Past Drug Use History: Marijuana - Past Family History Sister(s) Family Medical History: Cancer Father Family Medical History: Cancer Medications and Allergies Home Medications Medication Instructions Recorded Confirmed Type Albuterol Sulfate [Ventolin HFA] 2 puff INHALATION RT-QID PRN 07/27/23 07/27/23 History Terbinafine [LamISIL] 250 mg PO DAILY 07/27/23 07/27/23 History Allergies Allergy/AdvReac Type Severity Reaction Status Date / Time No Known Allergies Allergy Verified 07/27/23 11:36 Physical Exam Vitals: Vital Signs Temp Pulse Resp BP Pulse Ox 07/27/23 13:26 97.1 F L 52 L 18 108/72 97 07/27/23 12:00 56 L 14 102/68 96 07/27/23 11:00 46 L 9 L 106/74 99 07/27/23 10:27 97.1 F L 49 L 18 106/74 99 07/27/23 09:00 97.6 F 72 18 108/69 99 Intake and Output 07/26/23 07/27/23 07/27/23 22:59 06:59 14:59 Other: Weight 47.174 kg Results CBC & Chem 7: 07/27/23 09:52 07/27/23 09:52
[2023-07-27] MEDS ORDERED: IPRATROPIUM-ALBUTEROL 3 ML NEB INHALATION PRN (13:41)
[2023-07-27] MEDS: NITROGLYCERIN OINT 1 INCH/GM PACKET TOPICAL SCH (18:06)
[2023-07-27] MEDS: NICOTINE 21MG/24HR PATCH TRANSDERM SCH (21:32)
[2023-07-28] MEDS: NITROGLYCERIN OINT 1 INCH/GM PACKET TOPICAL SCH ×2 (01:42→06:22)
[2023-07-28] MEDS: NICOTINE 21MG/24HR PATCH TRANSDERM SCH (08:09)
[2023-07-28] MEDS: ASPIRIN 81 MG PO SCH (08:09)
[2023-07-28] MEDS ORDERED: ASPIRIN 325 MG TAB PO SCH (09:00)
[2023-07-28] MEDS ORDERED: ENOXAPARIN 40 MG/0.4 ML SYRINGE SQ SCH (09:00)
--- NOTE | 2023-07-28 10:33 | P.CRDCN ---
History of Present Illness History of present illness: HISTORY OF PRESENT ILLNESS: This is a 53-year-old female with a past medical history significant for DVT, orthostatic hypotension and nicotine dependence. Patient follows in the office with Dr. Smith. We have been asked to see the patient in consultation for chest pain. Patient examined at the bedside. Patient states yesterday morning she woke up with chest discomfort. She states the pain was in the middle of her chest and radiated to her back. She also reports feeling nauseated and short of breath. She states the pain lasted for about 20 minutes and then went away on its own. At the time of examination she denies chest pain or pressure. She denies shortness of breath. Vital signs are stable. * EKG reveals sinus mechanism with no signs of acute ischemia * Chest xray negative for acute process * Current home cardiac medications include none * Most recent echocardiogram obtained in December 2022 revealed ejection fraction 52% with mild TR * Patient underwent stress testing in January 2023 which was negative for ischemia REVIEW OF SYSTEMS: At the time of my exam: CONSTITUTIONAL: Denies fever or chills. HEENT: Denies blurred vision, vision changes, or eye pain. Denies hemoptysis CARDIOVASCULAR: Denies chest pain. Denies orthopnea. Denies PND. Denies palpitations RESPIRATORY: Denies shortness of breath. GASTROINTESTINAL: Denies abdominal pain. Denies nausea or vomiting. HEMATOLOGIC: Denies bleeding disorders. GENITOURINARY: Denies any blood in urine. SKIN: Denies pruitis. Denies rash. PHYSICAL EXAM: VITAL SIGNS: Reviewed. GENERAL: Well-developed in no acute distress. HEENT: Head is normocephalic. Pupils are equal, round. Sclerae anicteric. Mucous membranes of the mouth are moist. Neck supple. No JVD or thyromegaly LUNGS: Respirations even and unlabored. Lungs essentially clear to auscultation bilaterally. HEART: Regular rate and rhythm. S1 and S2 heard. ABDOMEN: Soft. Nondistended. Nontender. EXTREMITIES: Normal range of motion. No clubbing or cyanosis. Peripheral pulses intact. No lower extremity edema NEUROLOGIC: Awake and alert. Oriented x 3. ASSESSMENT: Chest pain, troponins negative 3 History of DVT History of orthostatic hypotension Nicotine dependence PLAN: An acute coronary event has been ruled out No need to obtain echocardiogram Check d-dimer Patient may be discharged home this afternoon from a cardiac standpoint if d- dimer is normal Nurse practitioner note has been reviewed by physician. Signing provider agrees with the documented findings, assessment, and plan of care. Past Medical History Past Medical History: Cancer, Chest Pain / Angina, Deep Vein Thrombosis (DVT), Osteoarthritis (OA), Renal Disease Additional Past Medical History / Comment(s): LT BREAST MASS, pt states hx of racing heart and chest pain. see Dr De Santiago H&P. HX ABNORMAL CHIARI TO BACK OF HEAD. CERVICAL CANCER X 2, ulcer hx of h pylori. Blacking out lately has fallen. wore heart monitor and seeing neurologist. BP runs a little low. Stage 3 kidney disease History of Any Multi-Drug Resistant Organisms: None Reported Past Surgical History: Appendectomy, Section, Cholecystectomy, Uterine Ablation Additional Past Surgical History / Comment(s): PREM filter IN MIDDLE OF CHEST JUST UNDER BREAST AREA. ENLARGED OPENING FOR CHIARI MALFUNCTIONS. COLD KNIFE CONIZATION X 2 Past Anesthesia/Blood Transfusion Reactions: Postoperative Nausea & Vomiting (PONV) Additional Past Anesthesia/Blood Transfusion Reaction / Comment(s): No blood transfusions Past Psychological History: No Psychological Hx Reported Smoking Status: Current every day smoker Past Alcohol Use History: Rare Past Drug Use History: Marijuana - Past Family History Sister(s) Family Medical History: Cancer Father Family Medical History: Cancer Medications and Allergies Home Medications Medication Instructions Recorded Confirmed Type Albuterol Sulfate [Ventolin HFA] 2 puff INHALATION RT-QID PRN 07/27/23 07/27/23 History Terbinafine [LamISIL] 250 mg PO DAILY 07/27/23 07/27/23 History Allergies Allergy/AdvReac Type Severity Reaction Status Date / Time No Known Allergies Allergy Verified 07/27/23 11:36 Physical Exam Vitals: Vital Signs Temp Pulse Pulse Resp BP BP Pulse Ox 07/28/23 02:18 98.1 F 62 15 106/71 98 07/28/23 01:28 55 L 18 07/27/23 21:32 55 L 18 07/27/23 19:22 98.2 F 53 L 16 98/51 97 07/27/23 16:55 52 L 18 104/67 97 07/27/23 15:00 97.6 F 55 L 18 120/79 99 07/27/23 13:26 97.1 F L 52 L 18 108/72 97 07/27/23 12:00 56 L 14 102/68 96 07/27/23 11:00 46 L 9 L 106/74 99 07/27/23 10:27 97.1 F L 49 L 18 106/74 99 07/27/23 09:00 97.6 F 72 18 108/69 99 Intake and Output 07/27/23 07/28/23 07/28/23 22:59 06:59 14:59 Other: Voiding Method Toilet Toilet # Voids 1 2 Results 07/28/23 12:43 07/27/23 09:52 Cardiac Enzymes 07/27/23 07/27/23 07/27/23 Range/Units 09:52 09:52 15:45 AST 23 (14-36) U/L Troponin I <0.012 <0.012 (0.000-0.034) ng/mL 07/27/23 Range/Units 22:31 AST (14-36) U/L Troponin I <0.012 (0.000-0.034) ng/mL Coagulation 07/27/23 Range/Units 09:52 PT 9.8 (9.0-12.0) sec APTT 25.3 (22.0-30.0) sec CBC 07/27/23 Range/Units 09:52 WBC 4.0 (3.8-10.6) k/uL RBC 4.17 (3.80-5.40) m/uL Hgb 13.3 (11.4-16.0) gm/dL Hct 38.6 (34.0-46.0) % Plt Count 228 (150-450) k/uL Comprehensive Metabolic Panel 07/27/23 Range/Units 09:52 Sodium 139 (137-145) mmol/L Potassium 4.3 (3.5-5.1) mmol/L Chloride 104 (98-107) mmol/L Carbon Dioxide 28 (22-30) mmol/L BUN 11 (7-17) mg/dL Creatinine 0.72 (0.52-1.04) mg/dL Glucose 86 (74-99) mg/dL Calcium 9.6 (8.4-10.2) mg/dL AST 23 (14-36) U/L ALT 15 (4-34) U/L Alkaline Phosphatase 63 (38-126) U/L Total Protein 7.2 (6.3-8.2) g/dL Albumin 4.3 (3.5-5.0) g/dL Current Medications Generic Name Dose Route Start Last Admin Trade Name Freq PRN Reason Stop Dose Admin Hydrocodone Bitart/Acetaminophen 1 each 07/27/23 13:39 Hydrocodone/Apap 5-325mg 1 Each Tab PO Q4HR PRN Moderate Pain (Scale 4 to 6) Albuterol/Ipratropium 3 ml 07/27/23 13:41 Ipratropium-Albuterol 3 Ml Neb INHALATION RT-Q6H PRN Wheezing Aspirin 81 mg 07/28/23 09:00 Aspirin 81 Mg PO DAILY [facility] Enoxaparin Sodium 40 mg 07/28/23 09:00 Enoxaparin 40 Mg/0.4 Ml Syringe SQ DAILY [facility] Naloxone HCl 0.2 mg 07/27/23 13:39 Naloxone 0.4 Mg/Ml 1 Ml Vial IVP Q2M PRN Opioid Reversal Nicotine 1 patch 07/27/23 19:30 07/27/23 21:32 Nicotine 21mg/24hr Patch TRANSDERM 1 patch DAILY [facility] Administration Nitroglycerin 0.4 mg 07/27/23 13:37 Nitroglycerin Sl Tabs 0.4 Mg Tab SUBLINGUAL Q5M PRN Chest Pain Nitroglycerin 1 inch 07/27/23 18:00 07/28/23 06:22 Nitroglycerin Oint 1 Inch/Gm Packet TOPICAL 1 inch Q6HR [facility] Administration Intake and Output 07/27/23 07/28/23 07/28/23 22:59 06:59 14:59 Other: Voiding Method Toilet Toilet # Voids 1 2 07/27/23 09:52 07/27/23 09:52
[2023-07-28 11:15] LABS: Chol/HDL Ratio 2.86 Ratio; LDL Cholesterol,Calculated 102.8 mg/dL (0.0-131.0)
--- NOTE | 2023-07-28 11:24 | CT ---
EXAMINATION TYPE: CT angio chest DATE OF EXAM: 07/28/2023 11:01 AM COMPARISON: HISTORY: Rule PE, hx of DVT CT DLP: 747.90 mGycm Automated exposure control for dose reduction was used. CONTRAST: CTA scan of the thorax is performed with IV Contrast, patient injected with 100mL mL of Isovue 370, p ulmonary embolism protocol. . FINDINGS: LUNGS: No sizable pleural effusion or pneumothorax. Mild emphysematous changes. Vague subcentimeter g roundglass nodules are seen in both upper lobes possibly postinfectious or postinflammatory. Linear a reas MEDIASTINUM: There is suboptimal enhancement of the pulmonary artery and its branches, there is no fi lling defect within the left lower lobe branch axial image 99 and coronal image 15 compatible with ac [place] pulmonary embolism. There are no greater than 1 cm hilar or mediastinal lymph nodes. [place] hi lar and mediastinal lymph nodes measuring subcentimeter in short axis. Trace of pericardial fluid. He art size normal. Report called to patient's nurse 11:19 AM 07/28/2023. OTHER: Hypertrophic and degenerative change of the spine. Small hiatal hernia. IVC filter suggested and there are surgical clips in the gallbladder fossa. IMPRESSION: 1. Exam positive for segmental left lower lobe branch acute pulmonary embolus. 2. Groundglass subcentimeter bilateral areas of nodularity could be post infectious or post inflammat ory. Follow-up x-ray could be obtained. A [place] critical message alert has been initiated for Monica Caro DO via the [facility] Critical Results System on 07/28/2023 11:21 AM. This message alert has been sent to Monica alva DO via the preferences provided by the clinician for the receipt of Radiology Critical Findings. Message ID [id number].
[2023-07-28] MEDS ORDERED: HEPARIN SODIUM 1,000 UN/ML (10ML VL) IV PRN (11:27)
--- NOTE | 2023-07-28 11:30 | P.PN ---
Subjective Progress Note Date: 07/28/23 Hospital Course: Patient is a very pleasant 53-year-old female with a past medical history of DVTs status post [place] filter placement, and asthma/COPD with continued nicotine dependence. She presented to the emergency department with a chief complaint of chest pain. Patient reports pain was felt to her midsternal chest awakening her from sleep. Patient reported her pain felt like a pressure and was sharp radiating into her back. She reported pain was intermittent and tang ed anything making it better or worse. She denied having any associated factors including headache, lightheadedness, dizziness, palpitations, shortness of breath, cough or congestion, or experiencing any numbness/tingling/weakness/swelling in her extremities. Vital signs reviewed. Blood pressure 108/69, heart rate 72, respiratory rate 18, temp 97.6F, and SpO2 of 99% on room air. EKG completed showing normal sinus rhythm at 62 bpm with no noted to a breast abnormality showing no signs of acute ischemia upon personal review and interpretation. Chest x-ray completed, lungs appear clear hype rinflation present consistent with COPD been negative for acute cardiopulmonary process. Labs completed and reviewed. CBC, coags, and CMP were unremarkable. Troponin was negative at less than 0.012. Patient admitted under our services with consultation to cardiology. Troponins trended overnight and all were negative at less than 0.0123 draws. Lipid profile unremarkable with an HDL of 67.20. Patient was evaluated by cardiology ruling out acute coronary syndrome. D-dimer was obtained resulting in a 1.19 and a CTA chest was completed. CTA positive for segmental left lower lobe branch acute pulmonary emboli with groundglass subcentimeter bilateral areas of nodularity likely inflammatory response. Patient started on anticoagulation with heparin infusion. Complete hypercoagulable workup to be completed secondary to patient's reports of greater than 10 DVTs and [place] filter placement. Consult was placed to hematology for recommendations. Patient will likely need lifelong anticoagulation. Physical exam: Vital signs reviewed and stable. General: Nontoxic, no distress and appears stated age. Derm: Skin warm and dry, normal coloration for ethnicity. Head: Atraumatic, normocephalic and symmetric. Eyes: EOMs intact, no lid lag, and anicteric sclera Mouth: no lip lesions, mucus membranes moist Cardiovascular: regular rate and rhythm with normal S1S2, no murmur, positive posterior tibial pulses bilaterally, and cap refill < 2 seconds. Lungs: Respirations even, regular, and unlabored on room air. Lungs CTA bilaterally, no rhonchi, no rales, no wheezing, and no accessory muscle usage. Abdominal: soft, nontender to palpation, no guarding, no appreciable organo megaly Ext: ROM intact. No gross muscle atrophy, no edema, no contractures Neuro: Speech clear, face symmetrical and CN II-XII grossly intact with no noted focal neuro deficits Psych: Alert and oriented to person, place, time, and situation. Appropriate and pleasant affect. Assessment and Plan of Care:. Acute Pulmonary Emboli Chest pain, acute coronary event was ruled out. Chest pain secondary to above History of DVTs status post [place] filter placement Asthma/COPD with continued nicotine dependence -Orders placed for hypercoagulable workup including anti-thrombin to activity, anti-thrombin to antigen, cardiolipin ABS, IgA, IgG, and IgM, factor V bleeding mutation, lupus anticoagulant, beta 2 glycoprotein, protein C activity, protein S activity, and prothrombin G/A mutation. -Order placed for high intensity heparin infusion at 18 units per kilogram per hour and will likely plan to transition to oral anticoagulant tomorrow pending further recommendations from hematology. -Echocardiogram to be obtained -Consult placed to hematology for evaluation as patient has had history of greater than 10 DVTs and now a PE. -Cardiology consulted, appreciate further recommendations -Telemetry monitoring -Trend troponins -Cardiac diet, NPO at midnight -Continue daily medication regimen with Aspirin 81 mg daily -Lipid profile with a.m. labs. -Echocardiogram to be completed to evaluate structure and function of heart Data and imaging reviewed: - Vital signs reviewed. Blood pressure 102/68, heart rate 69, respiratory rate 18, temp 97.8F, and SpO2 of 97% on room air. -Troponins trended overnight all negative at less than 0.0123 draws. D-dimer elevated at 1.19. -CTA chest was completed. CTA positive for segmental left lower lobe branch acute pulmonary emboli with groundglass subcentimeter bilateral areas of nodularity likely inflammatory response. CODE STATUS: Full code DVT prophylaxis: Lovenox Discussed with: Patient, hematology OPERATIONS PROFESSIONAL, and RN Anticipated discharge date: Likely 24-[address]: Home Patient was seen independently by Nurse Practitioner. This document was prepared using Dragon dictation software. Please allow for errors in radiology transcriptionist while rare they do occur. Objective - Vital Signs Vital signs: Vital Signs Temp 98.1 F 07/28/23 02:18 Pulse 62 07/28/23 02:18 Resp 15 07/28/23 02:18 BP 106/71 07/28/23 02:18 Pulse Ox 98 07/28/23 02:18 FiO2 Intake & Output 07/27/23 07/28/23 07/28/23 18:59 06:59 18:59 Weight 47.174 kg Other: Voiding Method Toilet # Voids 2 - Labs CBC & Chem 7: 07/28/23 12:43 07/27/23 09:52
[2023-07-28] MEDS ORDERED: HEPARIN SOD,PORK IN 0.45% NACL 25,000 UNIT in 0.45% NACL 1 250ML.BAG IV SCH (12:00)
[2023-07-28] MEDS ORDERED: HEPARIN SODIUM 1,000 UN/ML (10ML VL) IV ONE (12:00)
[2023-07-28 12:56] LABS: Basophils % (A) 0 %; Eosinophils # (A) 0.1 k/uL (0-0.7); Eosinophils % (A) 1 %; HCT 38.7 % (34.0-46.0); HGB 13.2 gm/dL (11.4-16.0); Lymphocytes # (A) 1.7 k/uL (1.0-4.8); Lymphocytes % (A) 35 %; MCH 31.8 pg (25.0-35.0); MCHC 34.1 g/dL (31.0-37.0); MCV 93.2 fL (80.0-100.0); Mean Platelet Volume 7.3; Monocytes # (A) 0.2 k/uL (0-1.0); Monocytes % (A) 4 %; Neutrophils # (A) 2.9 k/uL (1.3-7.7); Neutrophils % (A) 59 %; Platelet Count 244 k/uL (150-450); RBC 4.15 m/uL (3.80-5.40); WBC 4.9 k/uL (3.8-10.6)
[2023-07-28] MEDS: HYDROcodone/APAP 5-325MG 1 EACH TAB PO PRN ×2 (13:02→17:05)
[2023-07-28 13:06] LABS: INR 0.9 (<1.2); Partial Thromboplastin Time 27.4 sec (22.0-30.0); Prothrombin Time 10.1 sec (9.0-12.0)
[2023-07-28] MEDS: MORPHINE SULFATE 4 MG/ML SYRINGE IV PRN ×2 (14:46→20:23)
[2023-07-28 15:27] VITALS: BMI 18.4
[2023-07-28 17:44] LABS: Cardiolipin Ab IgG Interp Negative (Negative); Cardiolipin Ab IgM Interp Negative (Negative); Cardiolipin IgA Antibody <2.0 U/mL; Cardiolipin IgM Antibody 3.8 U/mL
--- NOTE | 2023-07-28 20:13 | P.CONS ---
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 Consult was placed for recurrent DVTs and PE, rule out hypercoagulable state. Patient presented to the emergency room with complaints of chest pain and shortness of breath. Patient reports symptoms have been ongoing for approximately 2 weeks but worsened yesterday and chest pain began radiating to back with associated nausea at which time she presented to the emergency room for further evaluation. Upon admission chest x-ray revealed no evidence for acute pulmonary disease. She was found to have a an elevated D-dimer of 1.19 and CTA chest was obtained revealing segmental left lower lobe branch acute pulmonary embolus. And groundglass subcentimeter bilateral areas of nodularity. Patient has been started on heparin drip. Serial troponins negative. CBC revealed WBC 4.0, hemoglobin 13.3, platelets 228,000. Coags normal. At today's visit patient is reporting she is having persistent chest pain and describes it as a pressure. Shortness of breath has improved. Patient states in 1999/2000 she developed DVTs in left lower extremity and had subsequent DVTs in the same leg. She was started on Coumadin at that time. She reports she then had a Prem filter placed as she underwent surgery for Chiari malformation in 2000. She was subsequently restarted on Coumadin and was on it for approximately 14 years and was taken off in 2013 by her PCP. Patient reports since she has had no other known blood clots/complications. She reports she was initially worked up by cell installer at [facility] in 1999 and states she does not believe she was diagnosed with any genetic mutations but states "there was an element missing in my blood." Patient reports at the time of diagnosis of her left lower extremity DVT she may have been on oral contraceptives but does not recall with certainty but was smoking at that time, otherwise no other reported risk factors. Cardiology following. Echocardiogram pending. Review of Systems 10 point ROS is negative except as stated in the HPI Past Medical History Past Medical History: Cancer, Chest Pain / Angina, Deep Vein Thrombosis (DVT), Osteoarthritis (OA), Renal Disease Additional Past Medical History / Comment(s): LT BREAST MASS, pt states hx of racing heart and chest pain. see Dr De Santiago H&P. HX ABNORMAL CHIARI TO BACK OF HEAD. CERVICAL CANCER X 2, ulcer hx of h pylori. Blacking out lately has fallen. wore heart monitor and seeing neurologist. BP runs a little low. Stage 3 kidney disease History of Any Multi-Drug Resistant Organisms: None Reported Past Surgical History: Appendectomy, Section, Cholecystectomy, Uterine Ablation Additional Past Surgical History / Comment(s): PREM filter IN MIDDLE OF CHEST JUST UNDER BREAST AREA. ENLARGED OPENING FOR CHIARI MALFUNCTIONS. COLD KNIFE CONIZATION X 2 Past Anesthesia/Blood Transfusion Reactions: Postoperative Nausea & Vomiting (PONV) Additional Past Anesthesia/Blood Transfusion Reaction / Comm: No blood transfusions Past Psychological History: No Psychological Hx Reported Smoking Status: Current every day smoker Past Alcohol Use History: Rare Past Drug Use History: Marijuana - Past Family History Sister(s) Family Medical History: Cancer Father Family Medical History: Cancer Medications and Allergies Home Medications Medication Instructions Recorded Confirmed Type Albuterol Sulfate [Ventolin HFA] 2 puff INHALATION RT-QID PRN 07/27/23 07/27/23 History Terbinafine [LamISIL] 250 mg PO DAILY 07/27/23 07/27/23 History Allergies Allergy/AdvReac Type Severity Reaction Status Date / Time No Known Allergies Allergy Verified 07/27/23 11:36 Physical Exam Vitals: Vital Signs Temp Pulse Resp BP Pulse Ox 07/28/23 15:00 98.9 F 60 20 107/57 97 07/28/23 07:00 97.8 F 69 18 102/68 97 07/28/23 02:18 98.1 F 62 15 106/71 98 07/28/23 01:28 55 L 18 07/27/23 21:32 55 L 18 07/27/23 19:22 98.2 F 53 L 16 98/51 97 Intake and Output 07/28/23 07/28/23 07/28/23 06:59 14:59 22:59 Intake Total 240 Balance 240 Intake: Oral 240 Other: Voiding Method Toilet # Voids 2 1 Weight 47.174 kg - Constitutional General appearance: average body habitus, no acute distress - EENT Eyes: anicteric sclerae, EOMI ENT: hearing grossly normal - Respiratory Respiratory: bilateral: CTA - Cardiovascular Rhythm: regular Heart sounds: normal: S1, S2 Abnormal Heart Sounds: no systolic murmur, no diastolic murmur, no rub, no S3 Gallop, no S4 Gallop, no click, no other leg Peripheral Edema: bilateral: None - Gastrointestinal General gastrointestinal: soft, no tenderness - Integumentary Integumentary: no cyanotic, no jaundiced - Neurologic Neurologic: CNII-XII intact - Musculoskeletal Musculoskeletal: strength equal bilaterally - Psychiatric Psychiatric: A&O x's 3, appropriate affect, intact judgment & insight Results CBC & Chem 7: 07/28/23 12:43 07/27/23 09:52 Labs: Abnormal Lab Results - Last 24 Hours (Table) 07/27/23 07/28/23 Range/Units 09:52 08:26 D-Dimer 1.19 H (<0.60) mg/L FEU HDL Cholesterol 67.20 H (40.00-60.00) mg/dL Chest x-ray: report reviewed CT scan - chest: report reviewed Assessment and Plan (1) Pulmonary emboli Current Visit: Yes Status: Acute Priority: High Code(s): I26.99 - OTHER PULMONARY EMBOLISM WITHOUT ACUTE COR PULMONALE SNOMED Code(s): 61244196 Plan: Pulmonary Embolus/Hx recurrent DVT: -History as stated in the HPI -Presented with complaints of CP/SOB. D-dimer elevated at 1.19. CTA chest was obtained revealing segmental left lower lobe branch acute pulmonary embolus. Serial troponins negative. Heparin drip started -Cardiology following, Echo ordered -Has been off coumadin since 2013, prem filter in place -Pt has hx of nictoine dependence, otherwise no other known risk factors. PE would be considered unprovoked. -Hypercoaguable workup ordered as well as Jak2 V617f and exon 12-15 to r/o PV due to hx of chiari malformation - Due to reported hx of recurrent DVTs and unprovoked nature of PE, would recommend life long anticoagulation. Pt can be transited to oral anticoagulation, eliquis or xarelto if covered. If APL workup positive then would have to consider coumadin or lovenox. Pt updated on POC and is agreeable to proceed with further workup attests: I seen and examined patient, Performed H&P, developed impression and plan of care. Discussed with dictator. Agree with documentation, dictated as a scribe
[2023-07-29] MEDS: MORPHINE SULFATE 4 MG/ML SYRINGE IV PRN (03:51)
[2023-07-29] MEDS ORDERED: ONDANSETRON 4 MG/2 ML VIAL IVP STA (06:31)
--- NOTE | 2023-07-29 06:48 | CA ---
Transthoracic Echo Report Name: Syl Raymond Age: 53 Gender: F : 1970 Exam Date: 07/28/2023 15:33 Exam Location: [facility] Ht (in): 63 Wt (lb): 104 Ordering Physician: Tom Jackson Attending/Referring Phys: Regulatory Affairs Associate Jami Greer [facility] Procedure CPT: Indications: Acute PE Cardiac Hx: Technical Quality: Fair Contrast 1: Total Dose (mL): Contrast 2: Total Dose (mL): MEASUREMENTS (Male / Female) Normal Values 2D ECHO LV Diastolic Diameter PLAX 4.5 cm 4.2 - 5.9 / 3.9 - 5.3 cm LV Systolic Diameter PLAX 3.4 cm IVS Diastolic Thickness 0.7 cm 0.6 - 1.0 / 0.6 - 0.9 cm LVPW Diastolic Thickness 0.8 cm 0.6 - 1.0 / 0.6 - 0.9 cm LV Relative Wall Thickness 0.3 LVOT Diameter 2.0 cm LV Systolic Volume MOD 2C 19.9 cm??? LV Systolic Length 2C 5.3 cm Ascending Aorta Diameter 2.9 cm M-MODE Aortic Root Diameter MM 2.5 cm LA Systolic Diameter MM 2.9 cm LA Ao Ratio MM 1.2 AV Cusp Separation MM 2.0 cm DOPPLER AV Peak Velocity 136.8 cm/s AV Peak Gradient 7.5 mmHg AV Mean Velocity 107.7 cm/s AV Mean Gradient 4.9 mmHg AV Velocity Time Integral 30.8 cm LVOT Peak Velocity 94.8 cm/s LVOT Peak Gradient 3.6 mmHg LVOT Velocity Time Integral 20.8 cm LVOT Stroke Volume 66.3 cm??? LVOT Stroke Volume Index 45.3 ml/m??? LVOT Cardiac Index 2758.5 cm???/min???m??? AV Area Cont Eq vti 2.2 cm??? AV Area Cont Eq pk 2.2 cm??? Mitral E Point Velocity 101.5 cm/s Mitral A Point Velocity 50.8 cm/s Mitral E to A Ratio 2.0 MV Deceleration Time 169.0 ms LV E' Lateral Velocity 13.9 cm/s Mitral E to LV E' Lateral Ratio 7.3 LV E' Septal Velocity 10.7 cm/s Mitral E to LV E' Septal Ratio 9.5 TR Peak Velocity 211.1 cm/s TR Peak Gradient 17.8 mmHg Right Atrial Pressure 8.0 mmHg Pulmonary Artery Systolic Pressu 25.8 mmHg Right Ventricular Systolic Press 25.8 mmHg FINDINGS Left Ventricle Left ventricular wall thickness normal. Left ventricular cavity size normal. Low normal left ventricular systolic function with no obvious regional wall motion abnormalities. Left ventricular ejection fraction is estimated at 50- 55%. Right Ventricle Normal right ventricular size and function. Right Atrium Normal right atrial size. Left Atrium Normal left atrial size. Mitral Valve Structurally normal mitral valve. Mild mitral regurgitation. Aortic Valve Trileaflet aortic valve. No aortic valve stenosis or regurgitation. Tricuspid Valve Structurally normal tricuspid valve. Mild tricuspid regurgitation. Pulmonic Valve Pulmonic valve not well visualized. Pericardium Minimal pericardial effusion . Aorta Normal size aortic root and proximal ascending aorta. CONCLUSIONS Normal LV systolic function Prominent posterior pericardial stripe Previewed by: Dr. Gary De Santiago MD (Electronically Signed) Final Date: 29 July 2023 06:47
[2023-07-29] MEDS: HYDROcodone/APAP 5-325MG 1 EACH TAB PO PRN (09:25)
[2023-07-29] MEDS: ASPIRIN 81 MG PO SCH (09:27)
[2023-07-29] MEDS: NICOTINE 21MG/24HR PATCH TRANSDERM SCH (09:27)
[2023-07-29 09:54] LABS: Basophils # (A) 0.02 X 10*3/uL (0.00-0.10); Basophils % (A) 0.4 %; Eosinophils # (A) 0.15 X 10*3/uL (0.04-0.35); HCT 36.8 % (37.2-46.3); HGB 12.2 d/dL (12.0-15.0); Lymphocytes # (A) 2.79 X 10*3/uL (0.90-5.00); Lymphocytes % (A) 55.1 %; MCHC 33.2 d/dL (32.0-37.0); MCV 93.6 FL (80.0-97.0); Monocytes # (A) 0.35 X 10*3/uL (0.20-1.00); Monocytes % (A) 6.9 %; NRBC Per 100 WBC 0 X 10*3/uL (0.00-0.01); Neutrophils # (A) 1.74 X 10*3/uL (1.80-7.70); Neutrophils % (A) 34.4 %; Platelet Count 222 X 10*3/uL (140-440); RBC 3.93 X 10*6/uL (4.10-5.20); RDW 12.2 % (11.5-14.5); WBC 5.06 X 10*3/uL (4.50-10.00)
[2023-07-29] MEDS ORDERED: PROCHLORPERAZINE INJ 10 MG/2 ML VIAL IVP PRN (10:13)
[2023-07-29] MEDS: Apixaban Initiation Dose--VTE 5 MG TAB PO SCH ×2 (12:13→20:56)
--- NOTE | 2023-07-29 16:00 | P.PN ---
Subjective Progress Note Date: 07/29/23 Patient is doing well from cardiac vessel standpoint. She denies having any chest pain chest pressure or shortness of breath. She denies having any palpitations. Limited does not show any other arrhythmias. Hemodynamically stable ASSESSMENT: Chest pain, due to Left lower lobe subsegmental PE No evidence of right ventricular strain History of orthostatic hypotension Nicotine dependence PLAN: Discontinue IV heparin drip. Start Eliquis PE dosing Cardiology team will sign off. Please reconsult us in case of any question Objective - Vital Signs Vital signs: Vital Signs Temp 98.3 F 07/29/23 14:00 Pulse 67 07/29/23 14:00 Resp 14 07/29/23 14:00 BP 92/55 07/29/23 14:00 Pulse Ox 97 07/29/23 14:00 FiO2 Intake & Output 07/28/23 07/29/23 07/29/23 18:59 06:59 18:59 Intake Total 240 657.597 Balance 240 657.597 Weight 47.174 kg Intake: Intake, IV Titration 57.597 Amount Heparin Sod,Pork in 0.45% 57.597 NaCl 25,000 unit In 0.45 % NaCl 1 250ml.bag @ 18 UNITS/KG/HR 8.491 mls/hr IV .Q24H [facility] Rx#: [id number] Oral 240 600 Other: Voiding Method Toilet Toilet # Voids 1 2 - Labs CBC & Chem 7: 07/29/23 05:59 07/27/23 09:52 Labs: Abnormal Lab Results - Last 24 Hours (Table) 07/28/23 07/29/23 07/29/23 Range/Units 19:02 02:00 05:59 RBC 3.93 L (4.10-5.20) X 10*6/uL Hct 36.8 L (37.2-46.3) % Neutrophils # 1.74 L (1.80-7.70) X 10*3/uL APTT 94.5 H 52.3 H (22.0-30.0) sec 07/29/23 Range/Units 05:59 RBC (4.10-5.20) X 10*6/uL Hct (37.2-46.3) % Neutrophils # (1.80-7.70) X 10*3/uL APTT 47.4 H (22.0-30.0) sec
--- NOTE | 2023-07-29 19:39 | P.PN ---
Subjective Progress Note Date: 07/29/23 Hospital Course: Patient is a very pleasant 53-year-old female with a past medical history of DVTs status post [place] filter placement, and asthma/COPD with continued nicotine dependence. She presented to the emergency department with a chief complaint of chest pain. Patient reports pain was felt to her midsternal chest awakening her from sleep. Patient reported her pain felt like a pressure and was sharp radiating into her back. She reported pain was intermittent and tang ed anything making it better or worse. She denied having any associated factors including headache, lightheadedness, dizziness, palpitations, shortness of breath, cough or congestion, or experiencing any numbness/tingling/weakness/swelling in her extremities. Vital signs reviewed. Blood pressure 108/69, heart rate 72, respiratory rate 18, temp 97.6F, and SpO2 of 99% on room air. EKG completed showing normal sinus rhythm at 62 bpm with no noted to a breast abnormality showing no signs of acute ischemia upon personal review and interpretation. Chest x-ray completed, lungs appear clear hype rinflation present consistent with COPD been negative for acute cardiopulmonary process. Labs completed and reviewed. CBC, coags, and CMP were unremarkable. Troponin was negative at less than 0.012. Patient admitted under our services with consultation to cardiology. Troponins trended overnight and all were negative at less than 0.0123 draws. Lipid profile unremarkable with an HDL of 67.20. Patient was evaluated by cardiology ruling out acute coronary syndrome. D-dimer was obtained resulting in a 1.19 and a CTA chest was completed. CTA positive for segmental left lower lobe branch acute pulmonary emboli with groundglass subcentimeter bilateral areas of nodularity likely inflammatory response. Patient started on anticoagulation with heparin infusion. Complete hypercoagulable workup to be completed secondary to patient's reports of greater than 10 DVTs and [place] filter placement. Consult was placed to hematology for recommendations. Patient will likely need lifelong anticoagulation. Physical exam: Patient seen and fully evaluated at bedside this morning. She reports improvement of previous reported pain to left anterior chest states it remains but it is now much improved. She denies having any shortness of breath, dizziness, lightheadedness, or any other complaints at this time. Vital signs reviewed and stable. General: Nontoxic, no distress and appears stated age. Derm: Skin warm and dry, normal coloration for ethnicity. Head: Atraumatic, normocephalic and symmetric. Eyes: EOMs intact, no lid lag, and anicteric sclera Mouth: no lip lesions, mucus membranes moist Cardiovascular: regular rate and rhythm with normal S1S2, no murmur, positive posterior tibial pulses bilaterally, and cap refill < 2 seconds. Lungs: Respirations even, regular, and unlabored on room air. Lungs CTA bilaterally, no rhonchi, no rales, no wheezing, and no accessory muscle usage. Abdominal: soft, nontender to palpation, no guarding, no appreciable organomegaly Ext: ROM intact. No gross muscle atrophy, no edema, no contractures Neuro: Speech clear, face symmetrical and CN II-XII grossly intact with no noted focal neuro deficits Psych: Alert and oriented to person, place, time, and situation. Appropriate and pleasant affect. Assessment and Plan of Care:. Acute Pulmonary Emboli Chest pain, acute coronary event was ruled out. Chest pain secondary to above History of DVTs status post [place] filter placement Asthma/COPD with continued nicotine dependence -Orders placed for hypercoagulable workup including anti-thrombin to activity, anti-thrombin to antigen, cardiolipin ABS, IgA, IgG, and IgM, factor V bleeding mutation, lupus anticoagulant, beta 2 glycoprotein, protein C activity, protein S activity, and prothrombin G/A mutation. -Patient transitioned from heparin infusion to Eliquis 10 mg twice daily. Prescription sent to [facility] pharmacy, pharmacy verified that patient's insurance will cover this medication but they will not be able to fill prescription until Monday. -Echocardiogram completed and reviewed. -Hematology following and discussed plan of care with hematology PANAMA HAT BLOCKER. -Cardiology following, appreciate further recommendations -Continue Telemetry monitoring -Cardiac diet Data and imaging reviewed: - Vital signs reviewed. Blood pressure has been running well overnight currently 85/53, heart rate 74, respiratory rate 18, and temp 98.3F. Patient asymptomatic of hypotension at this time. CODE STATUS: Full code DVT prophylaxis: Lovenox Discussed with: Patient, hematology PANAMA HAT BLOCKER, and RN Anticipated discharge date: Likely 24-[address]: Home Patient was seen independently by Nurse Practitioner. This document was prepared using [employer] dictation software. Please allow for errors in facility examiner while rare they do occur. Objective - Vital Signs Vital signs: Vital Signs Temp 98.0 F 07/29/23 07:29 Pulse 67 10/14/23 07:29 Resp 15 07/29/23 07:29 BP 80/54 07/29/23 07:29 Pulse Ox 92 L 07/29/23 07:29 FiO2 Intake & Output 07/28/23 07/29/23 07/29/23 18:59 06:59 18:59 Intake Total 240 657.597 Balance 240 657.597 Weight 47.174 kg Intake: Intake, IV Titration 57.597 Amount Heparin Sod,Pork in 0.45% 57.597 NaCl 25,000 unit In 0.45 % NaCl 1 250ml.bag @ 18 UNITS/KG/HR 8.491 mls/hr IV .Q24H [facility] Rx#: [id number] Oral 240 600 Other: Voiding Method Toilet # Voids 1 2 - Labs CBC & Chem 7: 07/29/23 05:59 07/27/23 09:52 Labs: Abnormal Lab Results - Last 24 Hours (Table) 07/27/23 07/28/23 07/29/23 Range/Units 09:52 19:02 02:00 APTT 94.5 H 52.3 H (22.0-30.0) sec HDL Cholesterol 67.20 H (40.00-60.00) mg/dL 07/29/23 Range/Units 05:59 APTT 47.4 H (22.0-30.0) sec HDL Cholesterol (40.00-60.00) mg/dL
[2023-07-29] MEDS ORDERED: ACETAMINOPHEN TAB 325 MG TAB PO PRN (21:28)
[2023-07-30] MEDS: Apixaban Initiation Dose--VTE 5 MG TAB PO SCH (08:06)
[2023-07-30] MEDS: ASPIRIN 81 MG PO SCH (08:07)
[2023-07-30] MEDS: NICOTINE 21MG/24HR PATCH TRANSDERM SCH (08:07)
[2023-07-30 08:12] VITALS: BP 104/63; PULSE 56; RESP 16; TEMP 98.3
--- NOTE | 2023-07-30 11:11 | P.DS ---
Providers Date of admission: 07/27/23 13:39 Expected date of discharge: 07/30/23 Attending physician: Monica Caro DO Consults: 07/27/23 13:37 Consult Physician Urgent Consulting Provider: Maira Draper Consult Reason/Comments: Chest pain Do you want consulting provider notified?: Yes 07/27/23 13:39 Consult Physician Routine Consulting Provider: Maira Draper Consult Reason/Comments: Chest Pain Do you want consulting provider notified?: Yes 07/28/23 11:48 Consult Physician Routine Consulting Provider: Denise Díaz Consult Reason/Comments: recurrent DVTs and PE, hypercoagulable workup Do you want consulting provider notified?: Yes Primary care physician: Esequiel Pedroza Hospital Course: Discharge Diagnosis: Acute Pulmonary Emboli. Chest pain, acute coronary event was ruled out. Chest pain secondary to acute PE. History of DVTs status post Sharon filter placement Asthma/COPD with continued nicotine dependence Hospital Course: Patient is a very pleasant 53-year-old female with a past medical history of DVTs status post Law[place] filter placement, and asthma/COPD with continued nicotine dependence. She presented to the emergency department with a chief complaint of chest pain. Patient reports pain was felt to her midsternal chest awakening her from sleep. Patient reported her pain felt like a pressure and was sharp radiating into her back. She reported pain was intermittent and denied anything making it better or worse. She denied having any associated factors including headache, lightheadedness, dizziness, palpitations, shortness of breath, cough or congestion, or experiencing any numbness/tingling/weakness/swelling in her extremities. Vital signs reviewed. Blood pressure 108/69, heart rate 72, respiratory rate 18, temp 97.6F, and SpO2 of 99% on room air. EKG completed showing normal sinus rhythm at 62 bpm with no noted to a breast abnormality showing no signs of acute ischemia upon personal review and interpretation. Chest x-ray completed, lungs appear clear hyperinflation present consistent with COPD been negative for acute cardiopulmonary process. Labs completed and reviewed. CBC, coags, and CMP were unremarkable. Troponin was negative at less than 0.012. Patient admitted under our services with consultation to cardiology. Troponins trended overnight and all were negative at less than 0.0123 draws. Lipid profile unremarkable with an HDL of 67.20. Patient was evaluated by cardiology ruling out acute coronary syndrome. D-dimer was obtained resulting in a 1.19 and a CTA chest was completed. CTA positive for segmental left lower lobe branch acute pulmonary emboli with groundglass subcentimeter bilateral areas of nodularity likely inflammatory response. Patient started on anticoagulation with heparin infusion. Echocardiogram was completed ruling out right ventricular strain showing a p reserved EF of 50-55% with no significant structural or valvular abnormalities reported only prominent posterior pericardial stripe. Complete hypercoagulable workup to be completed secondary to patient's reports of greater than 10 DVTs and Lawton filter placement. Consult was placed to hematology for recommendations and hypercoagulable workup being completed. Patient will need to follow up outpatient with hematology as full hypercoagulable workup will not be resulted 4 days. This was discussed with patient and she was informed that she will likely need lifelong anticoagulation. Patient was started on oral anticoagulant with Eliquis and [facility] covered this medication. Pt is medically stable for discharge at this time. Blood pressure 104 was 63, heart rate 56, respiratory rate 16, temp 90.3F, SpO2 of 90% on room air. Follow up outpatient with PCP in 1-2 days and with waitress in 1 week. Patient was educated on the importance of smoking cessation. Physical exam: Vital signs reviewed and stable. General: Nontoxic, no distress and appears stated age. Derm: Skin warm and dry, normal coloration for ethnicity. Head: Atraumatic, normocephalic and symmetric. Eyes: EOMs intact, no lid lag, and anicteric sclera Mouth: no lip lesions, mucus membranes moist Cardiovascular: regular rate and rhythm with normal S1S2, no murmur, positive posterior tibial pulses bilaterally, and cap refill < 2 seconds. Lungs: Respirations even, regular, and unlabored on room air. Lungs CTA bilaterally, no rhonchi, no rales, no wheezing, and no accessory muscle usage. Abdominal: soft, nontender to palpation, no guarding, no appreciable organomegaly Ext: ROM intact. No gross muscle atrophy, no edema, no contractures Neuro: Speech clear, face symmetrical and CN II-XII grossly intact with no noted focal neuro deficits Psych: Alert and oriented to person, place, time, and situation. Appropriate and pleasant affect. A total of 34 minutes of time were spent preparing this complex discharge summary. Pt was discharged on 07/30/23 11:02 AM Patient was seen independently by Nurse Practitioner. This document was prepared using [employer] dictation software. Please allow for errors in nicu rn while rare they do occur. Patient Condition at Discharge: Stable Plan - Discharge Summary Discharge Rx Participant: No New Discharge Prescriptions: New Aspirin 81 mg PO DAILY 30 Days #30 tab Apixaban [Eliquis Starter Pack (for VTE)] 5 - 10 mg PO DIRECTED 30 Days #1 each Continue Albuterol Sulfate [Ventolin HFA] 2 puff INHALATION RT-QID PRN PRN Reason: Shortness Of Breath Terbinafine [LamISIL] 250 mg PO DAILY Discharge Medication List Albuterol Sulfate [Ventolin HFA] 2 puff INHALATION RT-QID PRN 07/27/23 [History] Terbinafine [LamISIL] 250 mg PO DAILY 07/27/23 [History] Apixaban [Eliquis Starter Pack (for VTE)] 5 - 10 mg PO DIRECTED 30 Days #1 each 07/29/23 [Rx] Aspirin 81 mg PO DAILY 30 Days #30 tab 07/30/23 [Rx] Follow up Appointment(s)/Referral(s): Denise Díaz MD [STAFF PHYSICIAN] - 1 Week Esequiel Pedroza MD [Primary Care Provider] - 1-2 days Patient Instructions/Handouts: Apixaban (By mouth), Pulmonary Embolism (GEN), How to Stop Smoking (DC), Blood Thinners (GEN) Activity/Diet/Wound Care/Special Instructions: Activity: As tolerated. Diet: Heart healthy and carb consistent diet. Avoid salts, or foods with hidden salts such as canned or boxed foods and frozen dinners. Extra salt makes your heart work harder and traps the fluid in your body for longer. Special Instructions: Take all of your medications as directed and remember to keep all of your doctor's appointments and follow-up as needed. You are also being discharged home on a blood thinner, Eliquis. This is very important to take daily as directed until otherwise advised by your waitress, Dr. Díaz. Being that you are being placed on a blood thinner it is very important to watch for any signs of bleeding and notify your doctor immediately if you notice any bleeding. It is also important to remove any trip hazards such as rugs or loose extension cords from your home to prevent unnecessary falls and if you do experience a fall or head injury, it is extremely important to be evaluated by a medical provider immediately to ensure no internal bleeding. Your prescription for Eliquis was sent to [facility] and pharmacy was called verifying that your insurance covers this medication. Thank you for allowing us to participate in your care, it was truly a pleasure having you for our patient!!!
[2023-07-31 10:00] LABS: Anti-Thrombin III Antigen 118 % (80 - 120); Protein S Antigen 90 % (50 - 140)
[2023-07-31 11:37] LABS: Prothrombin 20210A Mutation Negative
[2023-07-31 12:15] LABS: APTT 46 Sec(s) (<43); APTT 1:1 Mix 42 Sec(s) (<43); Dilute Russell Viper Venom 38 Sec(s) (<44)
[2023-08-01 10:33] LABS: Protein C Antigen 133 % (72-160)
[2023-08-01 12:44] LABS: Anti-Thrombin III Activity 116 % (79-109)
== END 2023-07-30 12:08 | disposition home or self-care (01) | DRG 134 ==
LOC: EC 08:52 → 6NMEDSUR 13:39 → OBSVTOIN 13:39 → 6NMEDSUR 16:19
PROVIDERS: ADMIT Internal Medicine; ATTEND Internal Medicine
DX: I26.93 Single subsegmental thrombotic pulmonary embolism without acute cor pulmonale (principal); J44.9 Chronic obstructive pulmonary disease, unspecified; F17.210 Nicotine dependence, cigarettes, uncomplicated; I12.9 Hypertensive chronic kidney disease with stage 1 through stage 4 chronic kidney disease, or unspecified chronic kidney disease; N18.30 Chronic kidney disease, stage 3 unspecified; M19.90 Unspecified osteoarthritis, unspecified site; Z79.01 Long term (current) use of anticoagulants; Z85.41 Personal history of malignant neoplasm of cervix uteri; Z86.19 Personal history of other infectious and parasitic diseases; Z86.711 Personal history of pulmonary embolism; Z86.718 Personal history of other venous thrombosis and embolism; Z95.828 Presence of other vascular implants and grafts
CPT/HCPCS: 36415; 71046; 71275; 80053; 80061; 81240; 81241; 82232; 83735; 84484; 85025; 85300; 85301; 85302; 85305; 85379; 85610; 85613; 85730; 85732; 86147; 93005; 93306; 99285

== ENCOUNTER 2024-09-24 06:11 | Day surgery (SDC) | payer OTHER ==
[2024-09-19 14:33] VITALS: BMI 19.3
[~2024-09-24 06:11] MED LIST changes: -DEXAMETHASONE SOD PHOSPHATE 10 MG/ML 1 ML VIAL IV ONE; -HEPARIN SODIUM,PORCINE 5,000 UNIT/ML 1 ML VIAL SQ ONE; -HYDROmorphone 1 MG/ML 1 ML SYRINGE IVP PRN; -ONDANSETRON 4 MG/2 ML VIAL IVP ONE; -ceFAZolin 2 GM in SODIUM CHLORIDE 0.9% 100 ML IVPB ONE
[2024-09-24] MEDS: IV FLUID CONTINUATION 1,000 ML IV ONE (06:45)
[2024-09-24 07:21] VITALS: RESP 16
[2024-09-24] MEDS ORDERED: PROPOFOL 10 MG/ML 20 ML VIAL IV ONE (07:39)
[2024-09-24] MEDS ORDERED: LIDOCAINE 1% INJ 10MG/ML (20 ML MDV) ONE (07:39)
--- NOTE | 2024-09-24 08:06 | P.PCN ---
Date of Procedure: 09/24/24 Procedure(s) Performed: Brief history: Patient is a pleasant 54-year-old white female scheduled for an elective upper endoscopy as well as colonoscopy as a part of evaluation of GERD,/chronic persistent nausea and intermittent right upper quadrant abdominal pain for the last few months duration. Also has prior history of colon polyps and the last colonoscopy was 6 years ago. Procedure performed: Esophagogastroduodenoscopy biopsy Colonoscopy Preoperative diagnosis: [place] [facility] [place]: After informed consent was obtained from the patient was brought into the endoscopy unit and IV sedation was administered by anesthesia under continuous monitoring. Initially upper endoscopy was done. The Olympus GF 160 video endoscope was inserted inserted into the mouth and esophagus intubated without any difficulty and was gradually advanced into the stomach and duodenum and carefully examined. The bulb and second part of the duodenum appeared normal. The scope was then withdrawn into the stomach adequately insufflated with air and upon careful examination the antrum had mild gastritis and biopsies were done from this area. Mucosa of the body, cardia and fundus appeared normal. The scope was then withdrawn into the esophagus. Mild sliding-type hiatal hernia noted. The GE junction was located at 37 cm to the incisors. It appeared regular with no erythema erosions or ulcerations. Rest of the esophagus appeared normal. These were done from the distal esophagus patient tolerated the procedure well. At this time the patient continued to remain sedation. Initial digital rectal examination was normal. Olympus CF 160 video colonoscope was then inserted into the rectum and gradually advanced to the cecum without any difficulty. Careful examination was performed as the scope was gradually being withdrawn. The prep was excellent. The cecum, ascending colon, transverse colon, descending colon, sigmoid colon and rectum appeared normal. Retroflexion was performed in the rectum and no lesions were noted. Patient tolerated the procedure well. Impression: 1. Upper endoscopy revealed mild antral gastritis and small hiatal hernia 2. Colonoscopy was within normal limits with no evidence of colorectal neoplasia Recommendations: Findings of this examination were discussed with the patient as well as her family. She was advised to follow-up with the biopsy results. Continue with current medications and follow antireflux measures. Follow-up in the office in 2 weeks. Recommended repeat colonoscopy in 10 years.
[2024-09-24 08:32] VITALS: BP 109/68; PULSE 56
== END 2024-09-24 08:59 | disposition home or self-care (01) ==
LOC: ORWHC2ENDO 06:11
PROVIDERS: ATTEND Internal Medicine Gastroenterology
DX: K29.50 Unspecified chronic gastritis without bleeding (principal); K44.9 Diaphragmatic hernia without obstruction or gangrene; K20.90 Esophagitis, unspecified without bleeding; E78.5 Hyperlipidemia, unspecified; I25.10 Atherosclerotic heart disease of native coronary artery without angina pectoris; F17.210 Nicotine dependence, cigarettes, uncomplicated; N28.9 Disorder of kidney and ureter, unspecified; C53.9 Malignant neoplasm of cervix uteri, unspecified; I67.9 Cerebrovascular disease, unspecified; Z86.0100 Personal history of colon polyps, unspecified; Z90.89 Acquired absence of other organs; Z79.899 Other long term (current) drug therapy
CPT/HCPCS: 88305; 45378; 43239; J2003; J2704

== ENCOUNTER → 2025-01-09 | Outpatient (CLI) | payer OTHER ==
[2025-01-09 11:13] VITALS: BP 116/77; PULSE 73; RESP 16; TEMP 97.1
--- NOTE | 2025-01-09 14:25 | P.PAINPG ---
PQRS Measure Charge Sheet Comment: HISTORY OF PRESENT ILLNESS: A 54 yr old female as a referral from Dr Zafar Wright presents today w severe and chronic LBP > 6 mo secondary to radiculopathy, spondylosis and facet arthropathy without myelopathy for evaluation. Pt states pain level is provoked at 6 /10 in intensity, constant, localized in the lumbar spine, predominantly axial, sharp in character w occasional shooting pain towards the hips. Pain is provoked by bending, lifting, PT x 3 wks which ended in Nov 2024. Pain is alleviated by physician guided home exercises 5 times weekly since Nov 2024, heat, ice, medications, topical, repositioning and rest . Oswestry axial pain score at 25. PMH: OA, Cervical CA x2, Angina, DVT, GERD, CKD Stage III PSH: EGD (2023), Colonoscopy (2017), Appendectomy (1988), C- Section (1988), Cholecystectomy, Chiari Malformation Head Surgery (2002), Uterine Ablation (2010), Tubal Ligation (2006), Cold Knife Conization x2, Sharon Filter in chest under breast (2000), Hemorrhoidectomy (1991), SH: Daily tobacco use, Rare ETOH use, Cannabis use FH: Sis- CA. Fa- CA All: See list Meds: See list incl Tyl, Lidoderm, Cannabis REVIEW OF ORGAN SYSTEMS: CONSTITUTIONAL: No fevers or chills. No recent weight loss. NEUROLOGICAL: + numbness and tingling along the distal extremities. No seizure disorders or headaches. MUSCULOSKELETAL: + pain PSYCHIATRIC: Denies current depression or suicidal thoughts. Physical Examinations : Constitutional : Cooperative , not in acute distress . Neurologic : Cranial nerve II to XII intact. No focal neurological deficits. Psychiatric : alert & oriented x 3. Matching mood & appropriate affect. Judgment & insight intact. Musculoskeletal : Cervical Spine Motor strength in the deltoid and biceps: Normal right side. Normal Left side Motor strength biceps and the wrist extensors: Normal right side . Normal left side Motor strength in the triceps muscle: Normal right side. Normal left side Deep tendon reflexes: Normal at the biceps. Normal at Brachioradialis. Normal at triceps Vertebral body tenderness to deep palpation over Cervical facet loading test: positive bilaterally Spurling test: positive bilaterally Neck distraction test: positive bilaterally Josselyn sign: positive bilaterally Lumbar spine Motor strength lower extremities ,thigh and legs 5/5 Right side , 5/5 Left side Deep tendon reflexes : Normal Knee Jerk. Normal Ankle Jerk Vertebral body tenderness over Delaney Test positive Lumbar facet Loading Test: positive Right / positive Left Range of motion of the lumbar spine Flexion 30 degrees, extension 10 degrees Straight Leg Raise test: Left/ Right positive at degrees Yelitza test: positive right / positive left. Severe tenderness over the Sacroiliac joint on the Right / Left sides Gaenslen test: positive bilaterally Seated flexion test: positive bilater ally. Sacral spine : Severe tenderness over the Sacroiliac joint: right side / left side Range of motion: Flexion of the lumbar spine <60 degrees Range of motion: Extension of the lumbar spine <20 degrees Gaenslen's Test positive Yelitza test: positive right side / left side Thigh Thrust Test Sacral Thrust Test Imaging: X ray lumbar spine at Dr Zafar Wright's office Oct 2024 reviewed Assessment/ Plan : L4-S1 facet arthopathy Recommendation of MRI non contrast lumbar spine M54.16. All questions answered. I have spent greater than 30 minutes on patient care today. Dr Ambrocio was available by phone for the evaluation of this patient. The time was used to review the medical records including relevant urine studies and Prescription history (MAPs), review of the available imaging, evaluation and examination of the patient, coordination of care with the medical staff and if applicable referring physicians, as well as creation of the medical record PQRS Narrative: Smoking Status Current every day smoker Home Medications: Ambulatory Orders Albuterol Sulfate [Ventolin HFA] 2 puff INHALATION RT-QID PRN 07/27/23 Acetaminophen [Tylenol Extra Strength] 500 mg PO DAILY 09/19/24 Apixaban [Eliquis] 5 mg PO DAILY 09/19/24 Escitalopram [Lexapro] 5 mg PO DAILY 09/19/24 traMADol HCL 50 mg PO Q6H PRN 09/19/24 Controlled Substance Measures - Controlled Substance Measures Is patient prescribed a controlled substance at discharge?: No
== END ==
LOC: PNWHC3 09:57
PROVIDERS: ATTEND Specialist
DX: M47.817 Spondylosis without myelopathy or radiculopathy, lumbosacral region (principal); F17.210 Nicotine dependence, cigarettes, uncomplicated
CPT/HCPCS: 99211

== ENCOUNTER → 2025-02-03 | Outpatient (CLI) | payer OTHER ==
[2025-02-03 09:24] VITALS: BP 110/73; PULSE 67; RESP 18; TEMP 98.2
--- NOTE | 2025-02-03 14:29 | P.PAINPG ---
PQRS Measure Charge Sheet Comment: HISTORY OF PRESENT ILLNESS: A 54 yr old female presents today w severe and chronic LBP > 6 mo secondary to L2-L5 radiculopathy (post disc bulges), spondylosis and facet arthropathy without myelopathy for evaluation. Pt states pain level is provoked at 8 /10 in intensity, constant, localized in the lumbar spine, predominantly axial, sharp in character w occasional shooting pain towards the hips. Pain is provoked by walking/ sitting for periods > 30 min, PT x 3 wks which ended in Nov 2024. Pain is alleviated by physician guided home exercises 5 times weekly since Nov 2024, heat, ice, medications, Cannabis, topical, repositioning and rest . Interventional procedures include Medications include Tyl, Lidoderm, Cannabis REVIEW OF ORGAN SYSTEMS: CONSTITUTIONAL: No fevers or chills. No recent weight loss. NEUROLOGICAL: + numbness and tingling along the distal extremities. No seizure disorders or headaches. MUSCULOSKELETAL: + pain PSYCHIATRIC: Denies current depression or suicidal thoughts. Physical Examinations : Constitutional : Cooperative , not in acute distress . Neurologic : Cranial nerve II to XII intact. No focal neurological deficits. Psychiatric : alert & oriented x 3. Matching mood & appropriate affect. Judgment & insight intact. Musculoskeletal : Cervical Spine Motor strength in the deltoid and biceps: Normal right side. Normal Left side Motor strength biceps and the wrist extensors: Normal right side . Normal left side Motor strength in the triceps muscle: Normal right side. Normal left side Deep tendon reflexes: Normal at the biceps. Normal at Brachioradialis. Normal at triceps Vertebral body tenderness to deep palpation over Cervical facet loading test: positive bilaterally Spurling test: positive bilaterally Neck distraction test: positive bilaterally Josselyn sign: positive bilaterally Lumbar spine Motor strength lower extremities ,thigh and legs 5/5 Right side , 5/5 Left side Deep tendon reflexes : Normal Knee Jerk. Normal Ankle Jerk Vertebral body tenderness over L4 Delaney Test positive Lumbar facet Loading Test: positive Right / positive Left Range of motion of the lumbar spine Flexion 30 degrees, extension 10 degrees Straight Leg Raise test: Left/ Right positive at < 30 degrees Yelitza test: positive right / positive left. Severe tenderness over the Sacroiliac joint on the Right / Left sides Gaenslen test: positive bilaterally Seated flexion test: positive bilater ally. Sacral spine : Severe tenderness over the Sacroiliac joint: right side / left side Range of motion: Flexion of the lumbar spine <60 degrees Range of motion: Extension of the lumbar spine <20 degrees Gaenslen's Test positive Yelitza test: positive right side / left side Thigh Thrust Test Sacral Thrust Test Imaging: X ray lumbar spine at Dr Zafar Wright's office Oct 2024 reviewed MRI non contrast lumbar spine from 01/17/25 reviewed Assessment/ Plan : L2-L5 radiculopathy (post disc bulges), L4-S1 facet arthopathy Recommendation of BL TFESI L3-L4 #1. Risks, benefits of procedure discussed and patient verbalized understanding. Protocol for discontinuation/continuation of medication surrounding procedure discussed. All questions answered. I have spent greater than 30 minutes on patient care today. Dr Ambrocio was available by phone for the evaluation of this patient. The time was used to review the medical records including relevant urine studies and Prescription history (MAPs), review of the available imaging, evaluation and examination of the patient, coordination of care with the medical staff and if applicable referring physicians, as well as creation of the medical record - Pain Location Left Lower Back Non-Pharmacological Interventions: Heat, Ice Pharmacological Interventions: Medication, Topical Medication PQRS Narrative: Smoking Status Current every day smoker Hx Alcohol Use (MH) No Home Medications: Ambulatory Orders Albuterol Sulfate [Ventolin HFA] 2 puff INHALATION RT-QID PRN 07/27/23 Acetaminophen [Tylenol Extra Strength] 500 mg PO DAILY 09/19/24 Apixaban [Eliquis] 5 mg PO DAILY 09/19/24 Escitalopram [Lexapro] 5 mg PO DAILY 09/19/24 traMADol HCL 50 mg PO Q6H PRN 09/19/24 Controlled Substance Measures - Controlled Substance Measures Is patient prescribed a controlled substance at discharge?: No
== END ==
LOC: PNWHC3 08:37
PROVIDERS: ATTEND Specialist
DX: M47.26 Other spondylosis with radiculopathy, lumbar region (principal); F17.200 Nicotine dependence, unspecified, uncomplicated
CPT/HCPCS: 99212

== ENCOUNTER → 2025-04-03 | Outpatient (CLI) | payer OTHER ==
[2025-04-03 09:13] VITALS: BP 101/67; PULSE 69; RESP 16; TEMP 95.7
--- NOTE | 2025-04-03 14:39 | P.PAINPG ---
Objective - Vital Signs Vital signs: Intake & Output 04/02/25 04/03/25 04/03/25 18:59 06:59 18:59 Weight 45.813 kg PQRS Measure Charge Sheet Comment: HISTORY OF PRESENT ILLNESS: A 54 yr old female presents today w severe and chronic LBP > 6 mo secondary to L2-L5 radiculopathy (post disc bulges), spondylosis and facet arthropathy without myelopathy for evaluation s/p BL TFESI L4-L5 #1. Pt states she experienced 40 % pain relief x 3 wks s/p procedure. Pt states pain level is provoked at 5-10 /10 in intensity, constant, localized in the lumbar spine, predominantly axial, sharp in character without shooting pain. Pain is provoked by walking for periods > 20 min, PT x 3 wks which ended in Nov 2024. Pain is alleviated by physician guided home exercises 5 times weekly since Nov 2024, heat, ice, medications, Cannabis, topical, repositioning and rest . Interventional procedures include BL TFESI L4-L5 x1 (03/09) Medications include Tyl, Lidoderm, Cannabis REVIEW OF ORGAN SYSTEMS: CONSTITUTIONAL: No fevers or chills. No recent weight loss. NEUROLOGICAL: + numbness and tingling along the distal extremities. No seizure disorders or headaches. MUSCULOSKELETAL: + pain PSYCHIATRIC: Denies current depression or suicidal thoughts. Physical Examinations : Constitutional : Cooperative , not in acute distress . Neurologic : Cranial nerve II to XII intact. No focal neurological deficits. Psychiatric : alert & oriented x 3. Matching mood & appropriate affect. Judgment & insight intact. Musculoskeletal : Cervical Spine Motor strength in the deltoid and biceps: Normal right side. Normal Left side Motor strength biceps and the wrist extensors: Normal right side . Normal left side Motor strength in the triceps muscle: Normal right side. Normal left side Deep tendon reflexes: Normal at the biceps. Normal at Brachioradialis. Normal at triceps Vertebral body tenderness to deep palpation over Cervical facet loading test: positive bilaterally Spurling test: positive bilaterally Neck distraction test: positive bilaterally Josselyn sign: positive bilaterally Lumbar spine Motor strength lower extremities ,thigh and legs 5/5 Right side , 5/5 Left side Deep tendon reflexes : Normal Knee Jerk. Normal Ankle Jerk Vertebral body tenderness over L4 Delaney Test positive Lumbar facet Loading Test: positive Right / positive Left L3-L4, L4-L5 Range of motion of the lumbar spine Flexion 30 degrees, extension 10 degrees Straight Leg Raise test: Left/ Right positive at < 30 degrees Yelitza test: positive right / positive left. Severe tenderness over the Sacroiliac joint on the Right / Left sides Gaenslen test: positive bilaterally Seated flexion test: positive bilaterally. Sacral spine : Severe tenderness over the Sacroiliac joint: right side / left side Range of motion: Flexion of the lumbar spine <60 degrees Range of motion: Extension of the lumbar spine <20 degrees Gaenslen's Test positive Yelitza test: positive right side / left side Thigh Thrust Test Sacral Thrust Test Imaging: X ray lumbar spine at Dr Zafar Wright's office Oct 2024 reviewed MRI non contrast lumbar spine from 01/17/25 reviewed Assessment/ Plan : L2-L5 radiculopathy (post disc bulges), L4-S1 facet arthopathy Recommendation of BL MBB L3-L4/ L4-L5 #1. Risks, benefits of procedure discussed and patient verbalized understanding. Protocol for discontinuation/continuation of medication surrounding procedure discussed. Minimal anesthesia including Fentanyl and Versed if clinically indicated. All questions answered. I have spent greater than 30 minutes on patient care today. Dr Ambrocio was available by phone for the evaluation of this patient. The time was used to review the medical records including relevant urine studies and Prescription history (MAPs), review of the available imaging, evaluation and examination of the patient, coordination of care with the medical staff and if applicable referring physicians, as well as creation of the medical record - Pain Location Bilateral Lower Back Non-Pharmacological Interventions: Heat, Home Exercise, Ice, Inactivity, Physical Therapy, Position/Reposition, Relaxation Technique, Stretching Pharmacological Interventions: Epidural, PRN Medication, Topical Medication PQRS Narrative: Smoking Status Current every day smoker Hx Alcohol Use (MH) No Home Medications: Ambulatory Orders Albuterol Sulfate [Ventolin HFA] 2 puff INHALATION RT-QID PRN 07/27/23 Acetaminophen [Tylenol Extra Strength] 500 mg PO DAILY 09/19/24 Apixaban [Eliquis] 5 mg PO DAILY 09/19/24 traMADol HCL 50 mg PO Q6H PRN 09/19/24 diazePAM [Valium] 10 mg PO ONCE 03/11/25 Controlled Substance Measures - Controlled Substance Measures Is patient prescribed a controlled substance at discharge?: No
== END ==
LOC: PNWHC3 08:32
PROVIDERS: ATTEND Specialist
DX: M47.26 Other spondylosis with radiculopathy, lumbar region (principal); F17.200 Nicotine dependence, unspecified, uncomplicated; F12.90 Cannabis use, unspecified, uncomplicated; Z98.890 Other specified postprocedural states
CPT/HCPCS: 99211